=== PATIENT | female | born 1955 | race Caucasian/White ===

== ENCOUNTER → 2023-10-16 09:57 | Outpatient (REF) | payer MEDICARE, OTHER, SELFPAY ==
[2023-10-18 15:19] LABS: Quantiferon Mitogen minus NIL 5.05 IU/mL; Quantiferon NIL 0.02 IU/mL; Quantiferon TB Gold Plus Negative (Negative)
== END ==
LOC: REG 09:57
PROVIDERS: ATTENDING PHYSICIAN Internal Medicine Rheumatology; FAMILY PHYSICIAN Family Medicine
DX: E03.9 Hypothyroidism, unspecified (principal); L40.59 Other psoriatic arthropathy; M17.12 Unilateral primary osteoarthritis, left knee; Z68.33 Body mass index [BMI] 33.0-33.9, adult; Z79.899 Other long term (current) drug therapy
CPT/HCPCS: 36415; 86480

== ENCOUNTER → 2023-11-15 13:02 | Outpatient (REF) | payer MEDICARE, OTHER, SELFPAY | LOC: PAVMRI 13:02 | PROVIDERS: ATTENDING PHYSICIAN Internal Medicine Gastroenterology; FAMILY PHYSICIAN Family Medicine | DX: D13.6 Benign neoplasm of pancreas (principal) | CPT/HCPCS: 74183; A9575 ==

== ENCOUNTER → 2023-11-19 15:19 | Outpatient (REF) | payer MEDICARE, OTHER, SELFPAY | LOC: PAVMRI 15:19 | PROVIDERS: ATTENDING PHYSICIAN Physician Assistant Surgical; FAMILY PHYSICIAN Family Medicine | DX: S46.012A Strain of muscle(s) and tendon(s) of the rotator cuff of left shoulder, initial encounter (principal); M25.512 Pain in left shoulder | CPT/HCPCS: 73221 ==

== ENCOUNTER → 2023-12-22 07:57 | Outpatient (REF) | payer MEDICARE, OTHER, SELFPAY ==
[2023-12-22 08:58] LABS: % Basophils 0.7 % (0-2); % Eosinophils 3.1 % (0-6); % Immature Granulocytes 0.3 % (0-0.5); % Lymphocytes 27.7 % (20.5-51.1); % Monocytes 7.8 % (1.7-9.3); % Neutrophils 60.4 % (42.2-75.2); Absolute Basophils 0.1 10^3/uL (0-0.2); Absolute Eosinophils 0.2 10^3/uL (0-0.7); Absolute Lymphocytes 1.9 10^3/uL (1.2-3.4); Absolute Monocytes 0.5 10^3/uL (0.1-0.6); Absolute Neutrophils 4.1 10^3/uL (1.4-6.5); Hematocrit 39.6 % (37.0-47.0); Hemoglobin 12.8 g/dL (12.0-16.0); Mean Corp Hgb Conc. 32.3 g/dL (33.0-37.0); Mean Corpuscular Hgb 28.3 pg (27.0-31.0); Mean Corpuscular Volume 87.6 fL (81.0-99.0); Mean Platelet Volume 8.4 fL (7.4-10.4); Nucleated Red Blood Cells % 0 %; Platelet Count 336 10^3/uL (130-400); Red Blood Cell Count 4.52 10^6/uL (4.20-5.40); Red Cell Dist. Width 14.2 % (11.5-14.5); White Blood Cell Count 6.8 10^3/uL (4.8-10.8)
[2023-12-22 09:34] LABS: ALT (SGPT) 21 U/L (0-35); AST (SGOT) 28 U/L (14-36); Albumin 4.4 g/dl (3.5-5.0); Alkaline Phosphatase 91 U/L (38-126); Blood Urea Nitrogen 29 mg/dl (7-17); Calcium 9.3 mg/dl (8.4-10.2); Carbon Dioxide 28 mmol/L (22-30); Chloride 102 mmol/L (98-107); Glucose 85 mg/dl (70-99); Lipase 266 U/L (23-300); Potassium 3.5 mmol/L (3.5-5.1); Sodium 136 mmol/L (135-145); Total Bilirubin 0.5 mg/dl (0.2-1.3); Total Protein 7.3 g/dl (6.3-8.2); eGFR > 60.00
== END ==
LOC: REG 07:57
PROVIDERS: ATTENDING PHYSICIAN Internal Medicine Rheumatology; FAMILY PHYSICIAN Nurse Practitioner Adult Health; OTHER PHYSICIAN Internal Medicine Cardiovascular Disease; REFERRING PHYSICIAN Internal Medicine Gastroenterology
DX: E03.9 Hypothyroidism, unspecified (principal); L40.59 Other psoriatic arthropathy; M17.12 Unilateral primary osteoarthritis, left knee; Z11.1 Encounter for screening for respiratory tuberculosis; Z68.33 Body mass index [BMI] 33.0-33.9, adult; Z79.899 Other long term (current) drug therapy; R10.84 Generalized abdominal pain; K63.1 Perforation of intestine (nontraumatic); K26.5 Chronic or unspecified duodenal ulcer with perforation; R11.14 Bilious vomiting; K86.1 Other chronic pancreatitis
CPT/HCPCS: 36415; 80053; 83690; 85025; 86140

== ENCOUNTER → 2024-02-08 13:22 | Outpatient (REF) | payer MEDICARE, OTHER, SELFPAY | LOC: WDC 13:22 | PROVIDERS: ATTENDING PHYSICIAN Nurse Practitioner Adult Health | DX: N64.4 Mastodynia (principal); Z12.31 Encounter for screening mammogram for malignant neoplasm of breast | CPT/HCPCS: 76642; 77062; 77066 ==

== ENCOUNTER → 2024-04-01 09:48 | Outpatient (REF) | payer MEDICARE, OTHER, SELFPAY ==
[2024-04-01 11:19] LABS: % Basophils 0.8 % (0-2); % Eosinophils 3.3 % (0-6); % Immature Granulocytes 0.3 % (0-0.5); % Lymphocytes 23.4 % (20.5-51.1); % Monocytes 8.2 % (1.7-9.3); Absolute Basophils 0.1 10^3/uL (0-0.2); Absolute Eosinophils 0.2 10^3/uL (0-0.7); Absolute Lymphocytes 1.7 10^3/uL (1.2-3.4); Absolute Monocytes 0.6 10^3/uL (0.1-0.6); Absolute Neutrophils 4.6 10^3/uL (1.4-6.5); Hematocrit 38.8 % (37.0-47.0); Hemoglobin 12.8 g/dL (12.0-16.0); Mean Corpuscular Hgb 28.6 pg (27.0-31.0); Mean Corpuscular Volume 86.8 fL (81.0-99.0); Nucleated Red Blood Cells % 0 %; Platelet Count 321 10^3/uL (130-400); Red Blood Cell Count 4.47 10^6/uL (4.20-5.40); White Blood Cell Count 7.2 10^3/uL (4.8-10.8)
[2024-04-01 11:59] LABS: ALT (SGPT) 17 U/L (0-35); AST (SGOT) 28 U/L (14-36); Albumin 4.5 g/dl (3.5-5.0); Alkaline Phosphatase 104 U/L (38-126); Blood Urea Nitrogen 30 mg/dl (7-17); Calcium 9.4 mg/dl (8.4-10.2); Carbon Dioxide 29 mmol/L (22-30); Chloride 99 mmol/L (98-107); Glucose 80 mg/dl (70-99); HDL Cholesterol 88 mg/dl; LDL Cholesterol, Calculated 125 mg/dl; Potassium 4.1 mmol/L (3.5-5.1); Sodium 138 mmol/L (135-145); Total Bilirubin 0.5 mg/dl (0.2-1.3); Total Cholesterol 233 mg/dl (50-199); Total Protein 7.2 g/dl (6.3-8.2); Triglyceride 101 mg/dl (10-149); Very Low Density Lipoprotein 20 mg/dl (0-30); eGFR > 60.00
[2024-04-01 12:17] LABS: Free T4 1.74 ng/dl (0.78-2.19)
[2024-04-01 12:31] LABS: TSH 2.72 uIU/ml (0.47-4.68)
== END ==
LOC: REG 09:48
PROVIDERS: ATTENDING PHYSICIAN Internal Medicine Cardiovascular Disease; FAMILY PHYSICIAN Internal Medicine Endocrinology, Diabetes & Metabolism; OTHER PHYSICIAN Family Medicine; REFERRING PHYSICIAN Internal Medicine Rheumatology
DX: E78.2 Mixed hyperlipidemia (principal); R06.02 Shortness of breath; R60.0 Localized edema; I45.0 Right fascicular block; R53.83 Other fatigue; E66.3 Overweight; E11.9 Type 2 diabetes mellitus without complications; I10 Essential (primary) hypertension; L40.50 Arthropathic psoriasis, unspecified; R07.9 Chest pain, unspecified; E89.0 Postprocedural hypothyroidism; E03.9 Hypothyroidism, unspecified; L40.59 Other psoriatic arthropathy; M17.12 Unilateral primary osteoarthritis, left knee; Z11.1 Encounter for screening for respiratory tuberculosis; Z68.33 Body mass index [BMI] 33.0-33.9, adult; Z79.899 Other long term (current) drug therapy
CPT/HCPCS: 36415; 80053; 80061; 83036; 84439; 84443; 85025; 86140

== ENCOUNTER → 2024-04-21 06:57 | Outpatient (REF) | payer MEDICARE, OTHER, SELFPAY ==
[2024-04-21 08:05] LABS: % Basophils 0.7 % (0-2); % Eosinophils 1.7 % (0-6); % Immature Granulocytes 0.1 % (0-0.5); % Lymphocytes 27.5 % (20.5-51.1); % Monocytes 7.6 % (1.7-9.3); % Neutrophils 62.4 % (42.2-75.2); Absolute Basophils 0.1 10^3/uL (0-0.2); Absolute Eosinophils 0.1 10^3/uL (0-0.7); Absolute Lymphocytes 2.1 10^3/uL (1.2-3.4); Absolute Monocytes 0.6 10^3/uL (0.1-0.6); Absolute Neutrophils 4.7 10^3/uL (1.4-6.5); Hematocrit 36.5 % (37.0-47.0); Hemoglobin 12.2 g/dL (12.0-16.0); Mean Corp Hgb Conc. 33.4 g/dL (33.0-37.0); Mean Corpuscular Hgb 27.9 pg (27.0-31.0); Mean Corpuscular Volume 83.3 fL (81.0-99.0); Mean Platelet Volume 8.6 fL (7.4-10.4); Nucleated Red Blood Cells % 0 %; Platelet Count 372 10^3/uL (130-400); Red Blood Cell Count 4.38 10^6/uL (4.20-5.40); Red Cell Dist. Width 13.7 % (11.5-14.5); White Blood Cell Count 7.6 10^3/uL (4.8-10.8)
[2024-04-21 08:28] LABS: Blood Urea Nitrogen 32 mg/dl (7-17); Calcium 9.7 mg/dl (8.4-10.2); Carbon Dioxide 28 mmol/L (22-30); Chloride 98 mmol/L (98-107); Glucose 85 mg/dl (70-99); Sodium 136 mmol/L (135-145); eGFR 54.73
== END ==
LOC: REG 06:57
PROVIDERS: ATTENDING PHYSICIAN Specialist; FAMILY PHYSICIAN Family Medicine; REFERRING PHYSICIAN Internal Medicine Cardiovascular Disease
DX: Z01.818 Encounter for other preprocedural examination (principal)
CPT/HCPCS: 36415; 80048; 85025; 93005

== ENCOUNTER → 2024-04-30 18:29 | Outpatient (REF) | payer MEDICARE, OTHER, SELFPAY | LOC: PAVMRI 18:29 | PROVIDERS: ATTENDING PHYSICIAN Physician Assistant Surgical; FAMILY PHYSICIAN Family Medicine | DX: M75.41 Impingement syndrome of right shoulder (principal); M25.511 Pain in right shoulder | CPT/HCPCS: 73221 ==

== ENCOUNTER 2024-05-02 06:22 | Day surgery (SDC) | payer MEDICARE, OTHER, SELFPAY ==
[2024-05-02] VITALS (9 sets, daily range): BP systolic 137–164; BP diastolic 60–76; BMI 32.2
[2024-05-02 08:25] LABS: Glucose - Point of Care 94 mg/dl (70-99)
[2024-05-02] MEDS: TYLENOL 1000 MG PO (08:30)
[2024-05-02] MEDS: NORMOSOL-R 1000 IV (08:47)
[2024-05-02 11:04] LABS: Glucose - Point of Care 119 mg/dl (70-99)
== END 2024-05-02 13:00 | disposition home or self-care (01) ==
LOC: SDS 06:22
PROVIDERS: ATTENDING PHYSICIAN Specialist
DX: M75.122 Complete rotator cuff tear or rupture of left shoulder, not specified as traumatic (principal); M75.42 Impingement syndrome of left shoulder
CPT/HCPCS: 29827; 29826; 29823; 82962; C1713

== ENCOUNTER → 2024-05-27 07:32 | Outpatient (REF) | payer MEDICARE, OTHER, SELFPAY ==
[2024-05-27 09:18] LABS: % Basophils 0.7 % (0-2); % Eosinophils 1.3 % (0-6); % Immature Granulocytes 0.5 % (0-0.5); % Lymphocytes 21.3 % (20.5-51.1); % Monocytes 7.9 % (1.7-9.3); % Neutrophils 68.3 % (42.2-75.2); Absolute Basophils 0.1 10^3/uL (0-0.2); Absolute Eosinophils 0.1 10^3/uL (0-0.7); Absolute Lymphocytes 1.8 10^3/uL (1.2-3.4); Absolute Monocytes 0.7 10^3/uL (0.1-0.6); Absolute Neutrophils 5.6 10^3/uL (1.4-6.5); Hematocrit 34.8 % (37.0-47.0); Hemoglobin 11.3 g/dL (12.0-16.0); Mean Corp Hgb Conc. 32.5 g/dL (33.0-37.0); Mean Corpuscular Hgb 27.2 pg (27.0-31.0); Mean Corpuscular Volume 83.7 fL (81.0-99.0); Mean Platelet Volume 9.1 fL (7.4-10.4); Nucleated Red Blood Cells % 0 %; Platelet Count 500 10^3/uL (130-400); Red Blood Cell Count 4.16 10^6/uL (4.20-5.40); Red Cell Dist. Width 13.7 % (11.5-14.5); White Blood Cell Count 8.2 10^3/uL (4.8-10.8)
[2024-05-27 09:57] LABS: ALT (SGPT) 16 U/L (0-35); AST (SGOT) 26 U/L (14-36); Albumin 4.3 g/dl (3.5-5.0); Alkaline Phosphatase 76 U/L (38-126); Blood Urea Nitrogen 28 mg/dl (7-17); Calcium 9.9 mg/dl (8.4-10.2); Carbon Dioxide 32 mmol/L (22-30); Chloride 94 mmol/L (98-107); Glucose 93 mg/dl (70-99); Potassium 4.3 mmol/L (3.5-5.1); Sodium 140 mmol/L (135-145); Total Bilirubin 0.5 mg/dl (0.2-1.3); Total Protein 6.9 g/dl (6.3-8.2); eGFR > 60.00
[2024-05-27 10:31] LABS: TSH 1.42 uIU/ml (0.47-4.68)
== END ==
LOC: REG 07:32
PROVIDERS: ATTENDING PHYSICIAN Family Medicine; OTHER PHYSICIAN Internal Medicine Endocrinology, Diabetes & Metabolism; OTHER PHYSICIAN Internal Medicine Gastroenterology; REFERRING PHYSICIAN Internal Medicine Rheumatology
DX: R53.83 Other fatigue (principal); M79.604 Pain in right leg; M79.605 Pain in left leg
CPT/HCPCS: 36415; 80053; 84443; 85025; 86140

== ENCOUNTER 2024-05-30 12:57 | Inpatient (IN) | payer MEDICARE, OTHER, SELFPAY ==
[2024-05-30] VITALS (8 sets, daily range): BP systolic 148–169; BP diastolic 67–91; BMI 31.0
--- NOTE | 2024-05-30 09:08 | ED.GENMED ---
History of Present Illness
General
Chief Complaint: Generalized Pain
Source: patient and spouse
Exam Limitations: none
Time Seen by Provider: 05/30/24 09:05
Nursing documentation reviewed up to this point in time: agreed with
History of Present Illness
History of Present Illness:
Patient is a 68-year-old female with past medical history of psoriatic arthritis spinal stenosis reflux with history of duodenal perforation hypothyroidism chronic pancreatitis anxiety recent(05/02/24) left shoulder arthroscopy with repair of
rotator cuff tear and debridement presents to the ER for evaluation of pain. Patient reports has a history of psoriatic arthritis and believes she is going through a flare of her psoriatic arthritis because of her recent left shoulder surgery.
She reports ever since the surgery she has been having awful joint pain. She cannot take narcotics and was taking Tylenol at home but she reports she is to a point where she can barely walk and get out of bed. She reports she recently had blood
work done last week and her CRP was very elevated. She denies any fever she has no appetite she is trying to drink fluids. She denies any rash.
For her psoriatic arthritis she takes Otezla 30 mg twice daily and is followed by Dr. Cooper.
Past History
Past History
ED Past Medical History: Asthma, GERD, HTN, NIDDM, Seizures, Hypothyroidism, Psychiatric (Anxiety, Panic disorder) and Other (MS, recurrent pancreatitis, IPMN. Migraines, Demyelinating disease, Glaucoma, Ulcers)
ED Past Surgical History: Gynecological, Orthopedic (Cervical fusion, right total knee, ) and Other (Gastric sleeve, thyroidectomy)
Social History
Tobacco: Non-smoker
Alcohol: None
Drug: None
Personal:
Living: with family
Review of Systems
Review of Systems
All Other Systems: ROS reviewed and negative except as documented in HPI and ROS
Constitutional: Reports fatigue; Denies fever or chills
EENT: Reports no symptoms
Respiratory: Reports no symptoms
Cardiac: Reports no symptoms
ABD/GI: Reports no symptoms
: Reports no symptoms
Musculoskeletal: Reports joint pain
Skin: Reports no symptoms; Denies rash
Neurological: Reports no symptoms
Hematologic/Lymphatic: Reports no symptoms
Psychiatric: Reports no symptoms
Phy Exam
General Physical Exam
General Presentation: no apparent distress
General age: appears stated age
General Skin: warm and dry
General Habitus: normal
General Mental: alert
General Hydration: dry mucous membranes
Cardiovascular Exam
Cardiovascular Exam: regular rate/rhythm, no murmur and normal peripheral pulses
Pulmonary Exam
Pulmonary Exam: lungs clear and no respiratory distress
Neurological Exam
Neurological Exam: alert and oriented x3
Musculoskeletal Exam
Musculoskeletal Exam: full ROM and other (Patient with difficulty moving arms bilaterally slow to move legs because of pain no joint swelling erythema or rash noted)
Skin Exam
Skin Exam: normal color, warm/dry and no rash
Psychiatric Exam
Psychiatric Exam: normal mood/affect
Course
Orders/Labs/Results
Orders:
Orders
05/30/24 09:24
IV Insert/Care/Rem.- Treatment PRN
0.9% Sodium Chloride 1000 ml [Nss] 1,000 ml IV BOLUS
05/30/24 09:25
Acetaminophen 1000MG/100Ml [Ofirmev] 1,000 mg in 100 ml IV ONCE
Acetaminophen IV Indication:: ED Narcotic Naive Pt-ONCE
Ondansetron Injectable [Zofran] 4 mg IV NOW STA
05/30/24 10:13
CRP [C-Reactive Protein] Urgent
Complete Blood Count/With Diff Urgent
Comprehensive Metabolic Panel Urgent
Sed Rate [Erythrocyte Sed Rate] Urgent
05/30/24 10:23
Dexamethasone Sod Phosphate [Decadron] 10 mg IV NOW STA
05/30/24 11:28
Urinalysis Reflex To Culture Urgent
Date Specimen was Collected: 05/30/24
Time Specimen was Collected: 11:27
05/30/24 11:57
Morphine Sulfate 2 mg IV NOW STA
Ondansetron Injectable [Zofran] 4 mg IV NOW STA
05/30/24 12:01
COVID-19 Antigen Urgent
Source: Nasal Swab
Influenza A+B Rapid Molecular Urgent
TOÑA Source: Nasal Swab
Specimen Description:
05/30/24 12:02
Metoclopramide [Reglan] 10 mg .ROUTE .STK-MED ONE
Abnormal Lab Results
05/30/24
10:13
WBC 12.4 H 10^3/uL
(4.8-10.8)
RBC 3.89 L 10^6/uL
(4.20-5.40)
Hgb 10.6 L g/dL
(12.0-16.0)
Hct 32.1 L %
(37.0-47.0)
Plt Count 457 H 10^3/uL
(130-400)
Abs Immat Gran (auto) 0.1 H 10^3/uL
(0-0.05)
Absolute Neuts (auto) 10.2 H 10^3/uL
(1.4-6.5)
Absolute Lymphs (auto) 1.0 L 10^3/uL
(1.2-3.4)
Absolute Monos (auto) 1.0 H 10^3/uL
(0.1-0.6)
Neutrophils % 82.2 H %
(42.2-75.2)
Lymphocytes % 8.0 L %
(20.5-51.1)
ESR 57 H mm/hour
(0-20)
Chloride 97 L mmol/L
(98-107)
Carbon Dioxide 31 H mmol/L
(22-30)
BUN 30 H mg/dl
(7-17)
Glucose 117 H mg/dl
(70-99)
C-Reactive Protein 83.90 H mg/L
(0.0-10.00)
05/30/24 10:13
05/30/24 10:13
Vital Signs
Initial and Last Documented VS:
Initial Vital Signs
Temp Pulse Resp BP Pulse Ox
98.7 F 105 20 169/83 98
05/30/24 08:43 05/30/24 08:43 05/30/24 08:43 05/30/24 08:43 05/30/24 08:43
Last Documented Vital Signs
Temp Pulse Resp BP Pulse Ox
98.7 F 83 24 156/70 98
05/30/24 08:43 05/30/24 11:00 05/30/24 11:00 05/30/24 11:00 05/30/24 11:00
Crisis Intervention Counselor consulted with Physician
Crisis Intervention Counselor consulted with physician?: Yes
Name of Physician Consulted: Martina
MDM/Problems Addressed
Differential Diagnosis Includes:
Not limited to flare of psoriatic arthritis, viral syndrome less likely COVID flu
MDM/Problems Addressed:
Patient is a 68-year-old female with history of psoriatic arthritis who has had what she believes is a flare of her psoriatic arthritis since having rotator cuff surgery to left shoulder in April by Dr. Verdin. She complains of increasing joint pain
and now can barely get out of bed stand by herself removed. She denies any fevers. She presents uncomfortable however no obvious joint swelling or redness no rash. She is afebrile. White count minimally elevated 12.4 hemoglobin 10.6; she is
dehydrated on appearance with a BUN of 30 creatinine normal 0.8. Her C-reactive protein is elevated. No obvious UTI will check COVID flu however patient will require admission for arthralgia ambulatory dysfunction and pain with dehydration.
Patient was given 1 dose of steroids for inflammation along with Ofirmev initially but still has pain we will try very small dose of morphine as she does have history of nausea vomiting with that she was given nausea medicine.. She was hydrated
here in the ER
Chronic conditions affecting care:
Psoriatic arthritis recent shoulder surgery in April
*Pulse Oximetry
Patient hypoxic: no
*Critical Care Note
Total Time (30-74mins, 75-104mins- exclusive of procedures): Not Applicable
ED Attending Note
-
Portions of this chart may have been created with voice recognition software.� Occasional wrong word or��sound alike� substitutions may have occurred due to the inherent limitations of voice recognition software.
Discharge Plan
Departure
Patient Disposition: Admit
Date of Disposition: 05/30/24
Time of Disposition: 12:05
Admit to: Med/Surg
Admit to doctor: hospitalist
Presentation/result/management discussed w/ accepting MD/DO: Hospitalist
Patient with high blood pressure during this ER visit?: Yes
Condition: Fair
Covid-19: Not Applicable
Discharge Problem:
Arthralgia, Acute dehydration
Prescriptions:
No Action
travoprost 1 DROP drops
1 drp BOTH EYES HS
levothyroxine 100 MCG tablet
137 mcg PO DAILY
methotrexate sodium 2.5 MG tablet
2.5 mg PO TUTH
albuterol sulfate 1 PUFF HFA aerosol inhaler
2 puff inhalation R Q4HPRN PRN (Reason: sob)
Patient Comments:
as needed
melatonin 10 MG tablet
20 mg PO HS
amlodipine 5 MG tablet
2.5 mg PO HS
folic acid 1 MG tablet
1 mg PO DAILY
ondansetron 4 mg tablet,disintegrating
4 mg PO Q8HPRN PRN (Reason: nausea and vomiting) Qty: 10 0RF
furosemide 20 MG tablet
20 mg PO HS Qty: 0 0RF
metformin 500 mg Tablet
500 mg PO TID
meclizine 12.5 mg Tablet
12.5 mg PO TID PRN (Reason: vertigo)
Otezla 30 mg Tablet
30 mg PO BID
esomeprazole magnesium [Nexium] 40 mg capsule,delayed release(DR/EC)
40 mg PO DAILY
acetaminophen [Tylenol Arthritis] 650 mg Tablet Extended Release
1,300 mg PO Q8H
lorazepam 0.5 mg Tablet
0.5 mg PO BID PRN (Reason: anxiety)
loratadine [Claritin] 10 mg Tablet
10 mg PO PRN PRN (Reason: allergies)
cholecalciferol (vitamin D3) [Vitamin D3] 25 mcg (1,000 unit) Capsule
25 mcg PO DAILY
Centrum Silver Tablet
1 tab PO DAILY
calcium-vitamin D3-vitamin K [Viactiv] 650 mg-12.5 mcg-40 mcg Tablet,Chewable
2 tab PO DAILY
PreserVision AREDS
1 cap PO DAILY
vitamin R97-[id number] acid
1,000 mcg PO DAILY
Referrals:
Kar Cohen Jr., DO [Family Provider] -
Interventions
Interventions:
*Risk Screen - Suicide Last Done: 05/30/24 08:43
*General Assessment Last Done: 05/30/24 08:43
*Neglect/Abuse Screening Last Done: 05/30/24 08:43
ED- Fall Risk Assessment Last Done: 05/30/24 11:05
Discharge Date and Time
Print Language: TRINIDADIAN
[2024-05-30] MEDS: OFIRMEV 100 IV (10:22)
[2024-05-30] MEDS: ZOFRAN 4 MG IV (10:23)
[2024-05-30] MEDS: NSS 1000 IV ×2 (10:26→16:42)
[2024-05-30 10:30] LABS: % Basophils 0.4 % (0-2); % Eosinophils 0.5 % (0-6); % Immature Granulocytes 0.5 % (0-0.5); % Monocytes 8.4 % (1.7-9.3); % Neutrophils 82.2 % (42.2-75.2); Absolute Basophils 0.1 10^3/uL (0-0.2); Absolute Eosinophils 0.1 10^3/uL (0-0.7); Absolute Immature Granulocytes 0.1 10^3/uL (0-0.05); Absolute Neutrophils 10.2 10^3/uL (1.4-6.5); Hematocrit 32.1 % (37.0-47.0); Hemoglobin 10.6 g/dL (12.0-16.0); Mean Corpuscular Hgb 27.2 pg (27.0-31.0); Mean Corpuscular Volume 82.5 fL (81.0-99.0); Mean Platelet Volume 8.5 fL (7.4-10.4); Nucleated Red Blood Cells % 0 %; Platelet Count 457 10^3/uL (130-400); Red Blood Cell Count 3.89 10^6/uL (4.20-5.40); Red Cell Dist. Width 13.8 % (11.5-14.5); White Blood Cell Count 12.4 10^3/uL (4.8-10.8)
[2024-05-30 10:39] LABS: ALT (SGPT) 14 U/L (0-35); AST (SGOT) 21 U/L (14-36); Albumin 4.1 g/dl (3.5-5.0); Alkaline Phosphatase 82 U/L (38-126); Blood Urea Nitrogen 30 mg/dl (7-17); Carbon Dioxide 31 mmol/L (22-30); Chloride 97 mmol/L (98-107); Glucose 117 mg/dl (70-99); Potassium 3.9 mmol/L (3.5-5.1); Sodium 139 mmol/L (135-145); Total Bilirubin 0.4 mg/dl (0.2-1.3); Total Protein 6.8 g/dl (6.3-8.2); eGFR > 60.00
[2024-05-30] MEDS: DECADRON 10 MG IV (10:55)
--- NOTE | 2024-05-30 11:13 | EDRN ---
Pt was able to get up OOB w/ asist of 1 then ambulated to BR w/out assist in a slow shuffling step. Pt stated to me that she cannot sit down has has been voiding standing and is having her spouse assist her.
[2024-05-30 11:14] LABS: Erythrocyte Sed Rate 57 mm/hour (0-20)
[2024-05-30 11:42] LABS: Urine Albumin Trace (Neg - Trace); Urine Bilirubin Negative (Negative); Urine Character Clear (Clear); Urine Color Yellow; Urine Glucose Negative (Negative); Urine Ketone Negative (Negative); Urine Leukocyte Negative (Negative); Urine Nitrite Negative (Negative); Urine Occult Blood Negative (Negative); Urine Specific Gravity 1.015 (<1.030); Urine Urobilinogen Negative (Neg - 1+)
--- NOTE | 2024-05-30 11:52 | EDRN ---
[facility] in room w/ pt at this time.
[2024-05-30] MEDS: MORPHINE SULFATE 2 MG IV (12:10)
--- NOTE | 2024-05-30 12:11 | HPS.HSE ---
Family Physician
-
Family Physician: Kar Cohen Jr.
Chief Complaint
-
awful diffuse joint pain since having arthroscopy surg on her left shoulder in Apr 2024
History of Present Illness
66 F with PMH significant for psoriatic arthritis spinal stenosis, GERD,HX duodenal perforation hypothyroidism chronic pancreatitis, anxiety, recent(05/02/24) left shoulder arthroscopy with repair of rotator cuff tear and debridement presents to
the ER for evaluation of pain.
- she believes she is going through a flare of her psoriatic arthritis
- Ever since the surgery she has been having awful joint pain especially at large joints ( shoulder, elbows, wrists, Knees, ankles and feet)
- cannot take narcotics and was taking Tylenol at home but she reports she is to a point where she can barely walk
- recently her CRP was very elevated.
- For her psoriatic arthritis she takes Otezla 30 mg twice daily and is followed by Dr. Cooper.
Medical History
Past Medical History
Past Medical History: Reports Other
Additional Past Medical History:
Recurrent Pancreatitis / Abnormal Lipase
IPMN / Pancreatic Cysts
PUD / Bleeding Gastric Ulcer
Obesity
Psoriatic Arthritis
Hypothyroidism
Multinodular Goiter
Depression
Past Surgical History: Reports Other
Additional Past Surgical History:
Thyroidectomy
Bunionectomy
Breast Reduction
Salivary Gland Excision
Gastric Sleeve
Social History
Tobacco: Non-smoker
Alcohol: None
Drug: None
Family History
Family History: Other (Maternal Aunt - Pancreatic Cancer Paternal Aunt - Pancreatic Cancer)
Allergies / Home Medications
Allergies reflects when Allergies were last updated in [facility] [employer].
Home Medications with original date entered in [facility] [employer]
Allergy/Medication List:
Allergies
Allergy/AdvReac Type Severity Reaction Status Date / Time
bacitracin zinc Allergy Rash, Verified 06/20/22 20:16
[From Neosporin] itching
benzalkonium chloride Allergy Rash, Verified 06/20/22 20:16
[From Neosporin] itching
etanercept [From Enbrel] Allergy Demyelinating Verified 06/20/22 20:16
disease
abi nascimento Allergy Seizure Verified 06/20/22 20:16
gramicidin D [From Neosporin] Allergy Rash, Verified 06/20/22 20:16
itching
neomycin [Neomycin] Allergy Rash, Verified 06/20/22 20:16
itching
NSAIDS (Non-Steroidal Allergy pancreatiti Verified 06/20/22 20:16
Anti-Inflamma s
polymyxin B [From Neosporin] Allergy Rash, Verified 06/20/22 20:16
itching
pregabalin [From Lyrica] Allergy Nausea / Verified 06/20/22 20:16
Vomiting
Sulfa (Sulfonamide Allergy rash, Verified 06/20/22 20:16
Antibiotics) itching,
[Sulfa(Sulfonamide swelling &
Antibiotics)] nausea
Narcotics Allergy Vertigo, Uncoded 06/20/22 20:16
vomiting
steroids Allergy Unknown Uncoded 06/20/22 20:16
Home Medications
albuterol sulfate 90 mcg/actuation aerosol inhaler 2 puff inhalation R Q4HPRN PRN sob 12/15/20
furosemide 20 mg tablet 20 mg PO HS Fluid retention/Swelling 12/15/20
levothyroxine 100 mcg tablet 137 mcg PO DAILY Thyroid 12/15/20
melatonin 10 mg tablet 10 mg PO HS Sleep 12/15/20
methotrexate sodium 2.5 mg tablet 2.5 mg PO WETH CHEMO 12/15/20
multivitamin with folic acid 400 mcg tablet (Tab-A-Kelly) 1 tab PO DAILY Supplement 12/15/20
travoprost 0.004 % eye drops 1 drp BOTH EYES HS Eye condition 12/15/20
amlodipine 5 mg tablet 2.5 mg PO HS Blood pressure 04/28/21
Carbohydrate Kassi 500 mg PO DAILY Supplement 09/28/21
calcium-vitamin D3-vitamin K 500 mg-500 unit-40 mcg chewable tablet 3 ea PO DAILY Supplement 09/28/21
cholecalciferol (vitamin D3) 10 mcg (400 unit) tablet (Vitamin D3) 2,000 units PO DAILY Supplement 09/28/21
folic acid 1 mg tablet 1 mg PO SUMOTUFRSA Supplement 09/28/21
jfdyvxur-pvaordyv-tai C 250 mg-herbal no.124 8.875 mg chewable tablet (Airborne (ascorbic acid)) 1 ea PO DAILY Supplement 09/28/21
acetaminophen 325 mg tablet 650 mg PO Q4HWA 10/25/21
aspirin 325 mg tablet 325 mg PO DAILY 10/25/21
tofacitinib 5 mg tablet (Xeljanz) 5 mg PO BID Antirheumatic, Disease Modifying; ##0 10/25/21
vitamins A,C,N-mgkg-eavhag 14,320 unit-226 mg-200 unit capsule (Vision Formula (P-J-O-zinc-copper)) 1 ea PO HS Supplement ##0 10/25/21
ondansetron 4 mg disintegrating tablet 4 mg PO Q8HPRN PRN nausea and vomiting #10 tabs 05/17/22
metformin 500 mg tablet 500 mg PO BID 06/20/22
Review of Systems
-
Constitutional: Reports No Symptoms
EENT: Reports No Symptoms
Respiratory: Reports No Symptoms
Cardiac: Reports No Symptoms
Abdomen/GI: Reports No Symptoms
: Reports No Symptoms
Skin: Reports No Symptoms
Neurological: Reports No Symptoms
Endocrine: Reports No Symptoms
Hematologic/Lymphatic: Reports No Symptoms
Psych: Reports No Symptoms
Physical Exam
Vital Signs
Vital Signs
Temp Pulse Resp BP Pulse Ox
98.7 F 83 24 156/70 98
05/30/24 08:43 05/30/24 11:00 05/30/24 11:00 05/30/24 11:00 05/30/24 11:00
Physical Exam
General: Well Developed, Well Nourished and No Apparent Distress
HEENT: NormoCephalic, Moist mucous membranes and Atraumatic
Respiratory: Clear
Cardiac: S1/S2 and Regular Rhythm; No Murmur or Rub
GI: Soft, Non Tender, Non Distended and Normal Bowel Sounds; No Organomegaly
Rectal: Deferred by Provider
Musculoskeletal: No Clubbing, No Cyanosis and No Edema
Skin: No Rash
Neuro: Nonfocal/grossly intact
Laboratory Results
-
05/30/24 10:13
05/30/24 10:13
Laboratory Results
Total Bilirubin 0.4 mg/dl (0.2-1.3) 05/30/24 10:13
AST 21 U/L (14-36) 05/30/24 10:13
ALT 14 U/L (0-35) 05/30/24 10:13
Alkaline Phosphatase 82 U/L (38-126) 05/30/24 10:13
Data Reviewed
-
Lab Data: Labs Reviewed by me
Old Records: Reviewed
Impression/Plan
-
Vital Signs
Temp Pulse Resp BP Pulse Ox
98.7 F 83 24 156/70 98
05/30/24 08:43 05/30/24 11:00 05/30/24 11:00 05/30/24 11:00 05/30/24 11:00
Data
Laboratory Tests
05/27/24 05/30/24 05/30/24
07:56 10:13 11:28
WBC 12.4 H
Hgb 11.3 L 10.6 L
Plt Count 500 H 457 H
Chloride 97 L
Carbon Dioxide 32 H 31 H
BUN 30 H
Creatinine 0.8
eGFR > 60.00
C-Reactive Protein 83.90 H
Urine Clarity Clear
Urine Nitrite (Reflex) Negative
Leukocyte Esterase Rfl Negative
SARS-CoV-2 Antigen
Last hospitalist admission:
DATE OF ADMISSION: 12/20/2022 - DATE OF DISCHARGE: 12/28/2022
DC Dxs:
1. Duodenal perforation.
2. Recent EUS for pancreatic cyst with normal duodenal bulb, cystic lesion, pancreatic body, tail and head with no signs of
pathology in the gallbladder. At that time, perforation was found the duodenum and a clip placed.
ASSESSMENT & PLAN
Acute flare polyarticular Psoriatic inflammatory Arthritis: elevated CRP
- current joint pains at large joints ( shoulder, elbows, wrists, Knees, ankles and fe
- No active rash.
- associated with acute gait dysfunction
- agree with IV Decadron & add ISS moderate
- continue current regimen of Otezla BID
- on [employer] methotrexate
- Rheum consulted
Hypothyroidism
- Stable.
- Continue T4 replacement.
Obesity due to excess calories
- Affects all aspects of care.
- s/p prior gastric sleeve procedure.
- Encourage healthy diet / increased exercise with goal of weight reduction.
- cont. Metformin was told for obesity not diabetic
HX Duodenal perforation.
- s/p xploratory laparotomy, oversew of duodenotomy from iatrogenic perforation at endoscopic ultrasound, washout of duodenal pancreatic infection.
Recurrent Pancreatitis HX
- No longer metformin given AE of abdominal cramping and can confuse picture (patient taking this for weight loss, not diabetes)
Pancreatic Cysts HX
- HX EUS for pancreatic cyst with normal duodenal bulb, cystic lesion, pancreatic body, tail and head with no signs of
pathology in the gallbladder. At that time, perforation was found the duodenum and a clip placed.
- F/U needed as outpatient with Dr Daley
DVT Prophylaxis: SCDs
Code Status: Full
IP MS
[2024-05-30] MEDS: NSS 500 IV (12:14)
[2024-05-30] MEDS: REGLAN 10 MG IV (12:15)
--- NOTE | 2024-05-30 12:41 | EDRN ---
Dr. Sauceda in room w/ pt at this time.
[2024-05-30 12:42] LABS: COVID-19 Antigen Negative (Negative)
--- NOTE | 2024-05-30 14:15 | EDRN ---
No Delay Nurses Report sent to 4th floor E for M/S bed 405.1 at this time w/ call placed to floor and message left for RN.
[2024-05-30 17:00] LABS: Glucose - Point of Care 330 mg/dl (70-99)
[2024-05-30] MEDS: GLUCOPHAGE 500 MG PO (17:01)
[2024-05-30] MEDS: NOVOLOG FLEXPEN-MODERATE RESISTANCE 7 UNITS SC (17:02)
[2024-05-30] MEDS: DECADRON 4 MG IV (17:08)
[2024-05-30] MEDS: LOVENOX 40 MG SC (17:08)
[2024-05-30] MEDS: NON-FORMULARY ITEM 30 MG PO (20:40)
[2024-05-30] MEDS: ProAIR HFA INHALER 2 PUFF INH (20:58)
[2024-05-30 21:15] LABS: Glucose - Point of Care 149 mg/dl (70-99)
[2024-05-30] MEDS: AMBIEN 5 MG PO (22:07)
[2024-05-30] MEDS: MELATONIN 10 MG PO (22:07)
[2024-05-30] MEDS: NORVASC 2.5 MG PO (22:07)
[2024-05-30] MEDS: LASIX 20 MG PO (22:07)
[2024-05-30] MEDS: XALATAN OPHTHALMIC SOLUTION 1 DROP BOTH EYES (22:08)
[2024-05-30] MEDS: TYLENOL 650 MG PO (22:11)
[2024-05-31] MEDS: DECADRON 4 MG IV ×3 (01:07→17:32)
[2024-05-31] MEDS: TYLENOL 650 MG PO ×3 (03:26→15:42)
[2024-05-31] MEDS: SYNTHROID 137 MCG PO (05:22)
[2024-05-31 07:28] LABS: Glucose - Point of Care 135 mg/dl (70-99)
[2024-05-31 07:30] VITALS: BP 150/69
[2024-05-31] MEDS: NOVOLOG FLEXPEN-MODERATE RESISTANCE SC ×3 (07:30→16:45)
[2024-05-31 07:44] LABS: Hematocrit 29.1 % (37.0-47.0); Hemoglobin 9.6 g/dL (12.0-16.0); Mean Corpuscular Hgb 27.9 pg (27.0-31.0); Mean Corpuscular Volume 84.6 fL (81.0-99.0); Mean Platelet Volume 8.6 fL (7.4-10.4); Platelet Count 395 10^3/uL (130-400); Red Blood Cell Count 3.44 10^6/uL (4.20-5.40); Red Cell Dist. Width 13.7 % (11.5-14.5); White Blood Cell Count 6.9 10^3/uL (4.8-10.8)
[2024-05-31 08:04] LABS: ALT (SGPT) 13 U/L (0-35); AST (SGOT) 19 U/L (14-36); Albumin 3.1 g/dl (3.5-5.0); Alkaline Phosphatase 64 U/L (38-126); Blood Urea Nitrogen 20 mg/dl (7-17); Carbon Dioxide 24 mmol/L (22-30); Chloride 106 mmol/L (98-107); Estimated Creatinine Clearance 90 ml/min; Glucose 113 mg/dl (70-99); Potassium 3.4 mmol/L (3.5-5.1); Sodium 142 mmol/L (135-145); Total Bilirubin 0.2 mg/dl (0.2-1.3); Total Protein 5.6 g/dl (6.3-8.2); eGFR > 60.00
[2024-05-31] MEDS: VITAMIN C 500 MG PO (08:31)
[2024-05-31] MEDS: GLUCOPHAGE 500 MG PO ×3 (08:31→17:32)
[2024-05-31] MEDS: ZETIA 10 MG PO (08:31)
[2024-05-31] MEDS: FOLVITE 1 MG PO (08:32)
[2024-05-31] MEDS: NON-FORMULARY ITEM 30 MG PO ×2 (08:32→19:43)
[2024-05-31 08:55] VITALS: BP 145/72; PULSE 99; O2SAT 97
[2024-05-31 09:05] VITALS: BP 145/70; PULSE 99; O2SAT 97
[2024-05-31 09:57] LABS: Glycohemoglobin (HgbA1c) 6.2 % (4.0-5.6)
[2024-05-31] MEDS: NSS IV (10:57)
[2024-05-31 11:41] LABS: Glucose - Point of Care 130 mg/dl (70-99)
--- NOTE | 2024-05-31 13:46 | W.PN.HOSP.TC ---
Today's Communication/Plan
-
Continue IV steroids for today transition tomorrow
Assessment / Plan
Assessment / Plan
NAD, resting comfortably in bed
Scleral anicteric
Moist mucous membranes
No JVD
CTA bilateral
Normal S1-S2 no murmurs
Soft nontender nondistended bowel sounds active
No peripheral pitting edema
Moves extremities spontaneously
AAOx3
Psoriatic arthritis�acute flare
Currently steroids along with Otezla twice daily and methotrexate
Will need to follow-up with rheumatology as outpatient
Awaiting prior authorization for Tremfya
Likely able to transition to p.o. steroids with a 2-week tapering dose starting tomorrow
Pancreatic cyst
S/p EUS
Outpatient follow-up with Dr. Daley
Hypokalemia
Replete as needed
Anticipated Discharge: 24 - 48 hours
Subjective/Interval History
-
Date of Service: May 31, 2024
Seen and examined. No new complaints. No acute overnight events.
Feeling better, left shoulder pain improved, ICIng helps its. rest of joint pain improving with steroids-IV
Scared to be on steroids long-term as she does not want to gain weight
Currently on Otezla. Dr. Cooper working on getting her [place]
Objective Data
-
Labs:
Laboratory Results
05/31/24
07:21
WBC 6.9
Hgb 9.6 L
Hct 29.1 L
Plt Count 395
Sodium 142
Potassium 3.4 L
Chloride 106
Carbon Dioxide 24
BUN 20 H
Creatinine 0.6
Glucose 113 H
Calcium 8.0 L D
Total Bilirubin 0.2
AST 19
ALT 13
Alkaline Phosphatase 64
Vital Signs:
Vital Signs
Temp Pulse Resp BP Pulse Ox
98.3 F 104 18 150/69 97
05/31/24 07:30 05/31/24 07:30 05/31/24 07:30 05/31/24 07:30 05/31/24 08:20
I&O
05/30/24 05/31/24 06/01/24
06:59 06:59 06:59
Intake Total 1260 / 1260
Balance 1260 / 1260
[2024-05-31] MEDS: KCL 40 MEQ PO (14:16)
[2024-05-31 15:00] VITALS: BP 165/79
[2024-05-31] MEDS: KCL 30 MEQ IV (15:00)
--- NOTE | 2024-05-31 15:50 | PTCARENOTE ---
Received patient this am AAOx3. Pt complained of left shoulder pain at incision sites. Medicated PRN with Tylenol 650 mg PO with relief. K 3.4. Pt medicated with 40 meq potassium tablets as ordered. K rider started at 1500. Pt complained of
burning at IV site. Site looked fine. Ice pack placed over IV site. Dr. Cam Turner made aware. Rate decreased as per MD. Pt then stated ' that she wanted it turned off' Dr. Cam Turner made aware. Pt tolerated diet well. OOB ambulating in room
with a steady gait. Made patient comfortable. Cont to assess patient status.
[2024-05-31 16:42] LABS: Glucose - Point of Care 136 mg/dl (70-99)
[2024-05-31] MEDS: LOVENOX 40 MG SC (17:32)
[2024-05-31 21:09] LABS: Glucose - Point of Care 117 mg/dl (70-99)
[2024-05-31] MEDS: AMBIEN 5 MG PO (21:52)
[2024-05-31] MEDS: LASIX 20 MG PO (21:52)
[2024-05-31] MEDS: NORVASC 2.5 MG PO (21:52)
[2024-05-31] MEDS: XALATAN OPHTHALMIC SOLUTION 1 DROP BOTH EYES (21:53)
[2024-05-31] MEDS: MELATONIN 10 MG PO (21:53)
[2024-05-31 23:00] VITALS: BP 155/70
[2024-06-01] MEDS: DECADRON 4 MG IV ×2 (01:32→10:10)
[2024-06-01] MEDS: SYNTHROID 137 MCG PO (05:59)
[2024-06-01 06:00] VITALS: BMI 32.3
[2024-06-01] MEDS: TYLENOL 650 MG PO (06:00)
[2024-06-01 07:25] LABS: Glucose - Point of Care 131 mg/dl (70-99)
[2024-06-01 07:30] VITALS: BP 162/74
[2024-06-01] MEDS: NOVOLOG FLEXPEN-MODERATE RESISTANCE SC ×2 (07:30→12:58)
[2024-06-01] MEDS: NON-FORMULARY ITEM 30 MG PO (08:23)
[2024-06-01] MEDS: GLUCOPHAGE 500 MG PO ×2 (08:23→12:58)
[2024-06-01] MEDS: ZETIA 10 MG PO (08:23)
[2024-06-01] MEDS: VITAMIN C 500 MG PO (08:23)
[2024-06-01] MEDS: FOLVITE 1 MG PO (08:23)
[2024-06-01 10:51] LABS: Blood Urea Nitrogen 31 mg/dl (7-17); Calcium 9.5 mg/dl (8.4-10.2); Carbon Dioxide 26 mmol/L (22-30); Chloride 101 mmol/L (98-107); Estimated Creatinine Clearance 69 ml/min; Glucose 133 mg/dl (70-99); Potassium 4.2 mmol/L (3.5-5.1); Sodium 141 mmol/L (135-145); eGFR > 60.00
--- NOTE | 2024-06-01 10:51 | CM ---
CM following re: d/c planning.
Pt from home, resides with spouse in private residence.
Pt uses cane and walker as needed. She is able to manage ADLs, assists as needed.
Pt recently had surgery for repair of shoulder rotator cuff tear.
Pt is for d/c today.
Her will transport her home.
We discussed home PT / OT, she is agreeable to referral and would like [facility] as she has used them in the past.
Ref sent to [facility].
Goal: home with [facility] and family transport home.
--- NOTE | 2024-06-01 10:56 | W.PN.HOSP.TC ---
Today's Communication/Plan
-
dc home
transition to medrol dose jose enrique
outpt gi f/u
outpt pcp f/u
outpt rheum f/u
Assessment / Plan
Assessment / Plan
NAD, resting comfortably in bed
Scleral anicteric
Moist mucous membranes
No JVD
CTA bilateral
Normal S1-S2 no murmurs
Soft nontender nondistended bowel sounds active
No peripheral pitting edema
Moves extremities spontaneously
AAOx3
Psoriatic arthritis�acute flare
Currently steroids along with Otezla twice daily and methotrexate
Will need to follow-up with rheumatology as outpatient
Awaiting prior authorization for Tremfya
Likely able to transition to p.o. steroids with a 2-week tapering dose starting tomorrow
Pancreatic cyst
S/p EUS
Outpatient follow-up with Dr. Daley
Hypokalemia
Replete as needed
Anticipated Discharge: Today
Subjective/Interval History
-
Date of Service: June 01, 2024
seen and examined. feeling better. ambulating the halls with her walker
states that she wants to go home
has a follow up appointmet with advanced endoscopist tomorrow.
Objective Data
-
Labs:
Laboratory Results
06/01/24
10:02
Sodium 141
Potassium 4.2
Chloride 101
Carbon Dioxide 26
BUN 31 H
Creatinine 0.8
Glucose 133 H
Calcium 9.5 D
Vital Signs:
Vital Signs
Temp Pulse Resp BP Pulse Ox
98.2 F 78 16 162/74 96
06/01/24 07:30 06/01/24 07:30 06/01/24 07:30 06/01/24 07:30 06/01/24 08:20
I&O
05/31/24 06/01/24 06/02/24
06:59 06:59 06:59
Intake Total 1260 / 1260 600 / 600
Balance 1260 / 1260 600 / 600
--- NOTE | 2024-06-01 10:57 | W.DCSUMMARY ---
Discharge Summary
Discharge Data
Date of Admission: 05/30/24
Date of Discharge: 06/01/24
-
Pending Results: No
Hospital Course
Acute psoriatic arthritis flare. Started on IV steroids with improvement. Will transition home to a Medrol dose pack.
Low potassium repleted
Was seen by pt/ot rec home therapy.
[facility] need outpatient PCP and Rheumatology follow
Supposed to follow up with [facility] tomorrow.
Discharge Plan
-
Patient Disposition: Home (Routine Discharge)
Discharge Diagnosis/Procedures: Acute psoriatic arthritis flare
Diet: As tolerated
Activity: As tolerated
Blood Work: bmp in 5days
Referrals:
Kar Cohen Jr., [Family Provider] -
Chyna Cooper MD [Consulting Staff] -
Galindo Daley MD [Active] -
Additional Discharge Medication Instructions: Acute psoriatic arthritis flare. Started on IV steroids with improvement. Will transition home to a Medrol dose pack.
Low potassium repleted
Was seen by pt/ot rec home therapy.
[place] need outpatient PCP and Rheumatology follow
Supposed to follow up with [facility] tomorrow.
Prescriptions:
New
methylprednisolone [Methylpred DP] 4 mg tablets,dose pack
4 mg PO DAILY Qty: 21 0RF
Continued
travoprost 1 DROP drops
1 drp BOTH EYES HS
levothyroxine 100 MCG tablet
137 mcg PO DAILY
methotrexate sodium 2.5 MG tablet
2.5 mg PO TUTH
albuterol sulfate 1 PUFF HFA aerosol inhaler
2 puff inhalation R Q4HPRN PRN (Reason: sob)
Patient Comments:
as needed
melatonin 10 MG tablet
20 mg PO HS
amlodipine 5 MG tablet
2.5 mg PO HS
folic acid 1 MG tablet
1 mg PO DAILY
ondansetron 4 mg tablet,disintegrating
4 mg PO Q8HPRN PRN (Reason: nausea and vomiting) Qty: 10 0RF
furosemide 20 MG tablet
20 mg PO HS Qty: 0 0RF
metformin 500 mg Tablet
500 mg PO TID
meclizine 12.5 mg Tablet
12.5 mg PO TID PRN (Reason: vertigo)
Otezla 30 mg Tablet
30 mg PO BID
esomeprazole magnesium [Nexium] 40 mg capsule,delayed release(DR/EC)
40 mg PO DAILY
acetaminophen 650 mg Tablet Extended Release
1,300 mg PO Q8H
lorazepam 0.5 mg Tablet
0.5 mg PO BID PRN (Reason: anxiety)
loratadine [Claritin] 10 mg Tablet
10 mg PO PRN PRN (Reason: allergies)
cholecalciferol (vitamin D3) [Vitamin D3] 25 mcg (1,000 unit) Capsule
5,000 unit PO DAILY
bvsotlaotkdj-jscrwkdq-qogksc Tablet
1 tab PO DAILY
calcium-vitamin D3-vitamin K [Viactiv] 650 mg-12.5 mcg-40 mcg Tablet,Chewable
3 tab PO DAILY
PreserVision AREDS
1 cap PO BID
vitamin O53-hlyvl acid
1,000 mcg PO DAILY
ascorbic acid (vitamin C) [Vitamin C] 500 mg Tablet
500 mg PO DAILY
ferrous sulfate 325 mg (65 mg iron) Tablet
325 mg PO DAILY
zolpidem [Ambien] 5 mg Tablet
5 mg PO HS
ezetimibe [Zetia] 10 mg Tablet
10 mg PO DAILY
Rx Instructions:
Pt has not started this med yet.
Boswellia eboni-turmeric xt 500 mg Capsule
1 cap PO DAILY
[place] Xl
2 pill PO BID
Discharge Orders:
Discharge Patient (As Directed); Ordered 06/01/24
Ordered By: Getachew Turner
Discharge Date and Time
Print Language: [place]
[2024-06-01 11:20] VITALS: BP 164/85
[2024-06-01 11:40] LABS: Glucose - Point of Care 93 mg/dl (70-99)
== END 2024-06-01 14:16 | disposition home health service (06) | DRG 546 ==
LOC: 4 EAST ACU 12:57
PROVIDERS: Nurse Practitioner; ADMITTING PHYSICIAN Internal Medicine; ATTENDING PHYSICIAN Hospitalist; EMERGENCY PHYSICIAN Emergency Medicine; FAMILY PHYSICIAN Family Medicine
DX: L40.50 Arthropathic psoriasis, unspecified (principal); K86.1 Other chronic pancreatitis; K86.2 Cyst of pancreas; M48.00 Spinal stenosis, site unspecified; E89.0 Postprocedural hypothyroidism; F41.0 Panic disorder [episodic paroxysmal anxiety]; K21.9 Gastro-esophageal reflux disease without esophagitis; E86.0 Dehydration; M06.4 Inflammatory polyarthropathy; R26.9 Unspecified abnormalities of gait and mobility; E11.9 Type 2 diabetes mellitus without complications; F32.A Depression, unspecified; E04.2 Nontoxic multinodular goiter; I10 Essential (primary) hypertension; R74.8 Abnormal levels of other serum enzymes; R56.9 Unspecified convulsions; J45.909 Unspecified asthma, uncomplicated; E66.09 Other obesity due to excess calories; G43.909 Migraine, unspecified, not intractable, without status migrainosus; E87.6 Hypokalemia; G35 Multiple sclerosis; Z87.19 Personal history of other diseases of the digestive system; Z79.890 Hormone replacement therapy; Z79.631 Long term (current) use of antimetabolite agent; Z79.84 Long term (current) use of oral hypoglycemic drugs; Z87.11 Personal history of peptic ulcer disease; Z88.6 Allergy status to analgesic agent; Z88.1 Allergy status to other antibiotic agents; Z88.5 Allergy status to narcotic agent; Z88.2 Allergy status to sulfonamides; Z88.8 Allergy status to other drugs, medicaments and biological substances; Z68.32 Body mass index [BMI] 32.0-32.9, adult; Z11.52 Encounter for screening for COVID-19
CPT/HCPCS: 36415; 80048; 80053; 81003; 82962; 83036; 84443; 85025; 85027; 85652; 86140; 87502; 87811; 94640; 96361; 96372; 96374; 96375; 96376; 97162; 97166; 97535; 99284

== ENCOUNTER → 2024-06-05 11:35 | Outpatient (REF) | payer MEDICARE, OTHER, SELFPAY ==
[2024-06-05 15:01] LABS: % Basophils 0.1 % (0-2); % Eosinophils 0.2 % (0-6); % Immature Granulocytes 0.7 % (0-0.5); % Lymphocytes 14.1 % (20.5-51.1); % Monocytes 3.9 % (1.7-9.3); Absolute Immature Granulocytes 0.1 10^3/uL (0-0.05); Absolute Lymphocytes 1.9 10^3/uL (1.2-3.4); Absolute Monocytes 0.5 10^3/uL (0.1-0.6); Absolute Neutrophils 10.8 10^3/uL (1.4-6.5); Hematocrit 36.7 % (37.0-47.0); Mean Corp Hgb Conc. 32.7 g/dL (33.0-37.0); Mean Corpuscular Hgb 27.3 pg (27.0-31.0); Mean Corpuscular Volume 83.4 fL (81.0-99.0); Mean Platelet Volume 9.4 fL (7.4-10.4); Nucleated Red Blood Cells % 0 %; Platelet Count 538 10^3/uL (130-400); Red Cell Dist. Width 14.3 % (11.5-14.5); White Blood Cell Count 13.4 10^3/uL (4.8-10.8)
[2024-06-05 15:27] LABS: Blood Urea Nitrogen 40 mg/dl (7-17); Calcium 9.5 mg/dl (8.4-10.2); Carbon Dioxide 31 mmol/L (22-30); Chloride 90 mmol/L (98-107); Glucose 141 mg/dl (70-99); Potassium 4.2 mmol/L (3.5-5.1); Sodium 140 mmol/L (135-145); eGFR > 60.00
[2024-06-05 15:35] LABS: Erythrocyte Sed Rate 27 mm/hour (0-20)
== END ==
LOC: REG 11:35
PROVIDERS: ATTENDING PHYSICIAN Physician Assistant Surgical; FAMILY PHYSICIAN Family Medicine; OTHER PHYSICIAN Internal Medicine Cardiovascular Disease; OTHER PHYSICIAN Internal Medicine Endocrinology, Diabetes & Metabolism; OTHER PHYSICIAN Internal Medicine Gastroenterology; REFERRING PHYSICIAN Internal Medicine Rheumatology
DX: M25.511 Pain in right shoulder (principal); E87.6 Hypokalemia; I10 Essential (primary) hypertension; L40.59 Other psoriatic arthropathy; Z51.81 Encounter for therapeutic drug level monitoring; Z79.899 Other long term (current) drug therapy
CPT/HCPCS: 36415; 80048; 85025; 85652; 86140

== ENCOUNTER 2024-07-04 11:11 | Emergency (ER) | payer MEDICARE, OTHER, SELFPAY ==
[2024-07-04 11:49] VITALS: BP 196/95
--- NOTE | 2024-07-04 13:25 | ED.MUSCINJ ---
HPI-Injury
General
Chief Complaint: Fall
Source: patient
Exam Limitations: none
Time Seen by Provider: 07/04/24 12:57
History of Present Illness-Injury
Initial Injury comments:
68-year-old female not anticoagulated presents after trip and fall. 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 She had a forehead on the concrete. No loss of conscious. She denies neck pain. She does note a
headache. She was noted with abrasions and swelling to the forehead and nose. She also complains of left hand pain.
Past History
Past History
ED Past Medical History: Asthma, GERD, HTN, NIDDM, Seizures, Hypothyroidism, Psychiatric (Anxiety, Panic disorder) and Other (MS, recurrent pancreatitis, IPMN. Migraines, Demyelinating disease, Glaucoma, Ulcers)
ED Past Surgical History: Gynecological, Orthopedic (Cervical fusion, right total knee, ) and Other (Gastric sleeve, thyroidectomy)
Social History
Tobacco: Non-smoker
Alcohol: None
Drug: None
Personal:
Living: with family
Phy Exam
Physical Exam
Physical Exam:
General: Well appearing female NAD
HEENT: NC abrasions with laceration to forehead measuring 2cm. Nose and upper lip abrasions noted with upper lip swelling. Dentition appears well. TM's normal
Heart: RRR, no murmurs
Lungs; CTA bilaterally
MSK: c-spine nontender. Left hand/small finger tender with ecchymosis/swelling. No deformities.
Neuro: Alert and oriented no unilateral weakness.
Injury Course
Orders/Labs/Results
Orders:
Orders
07/04/24 11:54
CT Facial Bones W/o Iv Contras Urgent
Comment:
Reason For Exam: fall
CT Head W/o Iv Contrast Urgent
Comment:
Reason For Exam: fall
07/04/24 11:55
Hand, Left 3 View [CR Hand - Left Min 3 Views] Urgent
Comment:
Reason For Exam: fall
MDM/Problems Addressed
Differential Diagnosis Includes:
Mechanical fall with trauma to the forehead and face. CT of the head and facial bones ordered through triage which I reviewed and is negative for acute bony abnormalities or intracranial hemorrhage. Left hand pain after fall. Consider fracture
versus brain. I personally visualized x-rays of the left hand which demonstrate nondisplaced fracture of the base of the proximal phalanx of the small finger. Patient was splinted for this.
2 cm laceration to forehead. This was cleansed with saline anesthetized with 1% plain lidocaine and closed in a simple erupted fashion using 5-0 Prolene sutures. A total of 5 sutures were required to provide wound edge approximation and hemostasis.
*Critical Care Note
Total Time (30-74mins, 75-104mins- exclusive of procedures): Not Applicable
ED Attending Note
-
Portions of this chart may have been created with voice recognition software.� Occasional wrong word or��sound alike� substitutions may have occurred due to the inherent limitations of voice recognition software.
Discharge Plan
Departure
Patient Disposition: Home (Routine Discharge)
Date of Disposition: 07/04/24
Time of Disposition: 13:30
Patient with high blood pressure during this ER visit?: No
Discharge Problem:
Laceration
Instructions: Laceration Repair With Stitches (DC), Preventing falls in adults
Prescriptions:
No Action
travoprost 1 DROP drops
1 drp BOTH EYES HS
levothyroxine 100 MCG tablet
137 mcg PO DAILY
methotrexate sodium 2.5 MG tablet
2.5 mg PO TUTH
albuterol sulfate 1 PUFF HFA aerosol inhaler
2 puff inhalation R Q4HPRN PRN (Reason: sob)
Patient Comments:
as needed
melatonin 10 MG tablet
20 mg PO HS
amlodipine 5 MG tablet
2.5 mg PO HS
folic acid 1 MG tablet
1 mg PO DAILY
ondansetron 4 mg tablet,disintegrating
4 mg PO Q8HPRN PRN (Reason: nausea and vomiting) Qty: 10 0RF
furosemide 20 MG tablet
20 mg PO HS Qty: 0 0RF
metformin 500 mg Tablet
500 mg PO TID
meclizine 12.5 mg Tablet
12.5 mg PO TID PRN (Reason: vertigo)
Otezla 30 mg Tablet
30 mg PO BID
esomeprazole magnesium [Nexium] 40 mg capsule,delayed release(DR/EC)
40 mg PO DAILY
acetaminophen 650 mg Tablet Extended Release
1,300 mg PO Q8H
lorazepam 0.5 mg Tablet
0.5 mg PO BID PRN (Reason: anxiety)
loratadine [Claritin] 10 mg Tablet
10 mg PO PRN PRN (Reason: allergies)
cholecalciferol (vitamin D3) [Vitamin D3] 25 mcg (1,000 unit) Capsule
5,000 unit PO DAILY
vwrpjitpzhdj-zfaeqlxw-aqffdh Tablet
1 tab PO DAILY
calcium-vitamin D3-vitamin K [Viactiv] 650 mg-12.5 mcg-40 mcg Tablet,Chewable
3 tab PO DAILY
PreserVision AREDS
1 cap PO BID
vitamin S51-czpxj acid
1,000 mcg PO DAILY
ascorbic acid (vitamin C) [Vitamin C] 500 mg Tablet
500 mg PO DAILY
ferrous sulfate 325 mg (65 mg iron) Tablet
325 mg PO DAILY
zolpidem [Ambien] 5 mg Tablet
5 mg PO HS
ezetimibe [Zetia] 10 mg Tablet
10 mg PO DAILY
Rx Instructions:
Pt has not started this med yet.
Boswellia eboni-turmeric xt 500 mg Capsule
1 cap PO DAILY
[place] Xl
2 pill PO BID
methylprednisolone [Methylpred DP] 4 mg tablets,dose pack
4 mg PO DAILY Qty: 21 0RF
Referrals:
Kar Cohen Jr., DO [Family Provider] -
Activity Restrictions/Additional Instructions:
You may ice to the sore spots. You may take Tylenol or ibuprofen for pain. Apply antibacterial into the wounds daily. Have sutures removed in 5 to 7 days. Return if needed otherwise
Interventions
Interventions:
*Risk Screen - Suicide Last Done: 07/04/24 11:49
*General Assessment Last Done: 07/04/24 11:49
*Neglect/Abuse Screening Last Done: 07/04/24 11:49
ED- Neurological Assessment Last Done: 07/04/24 13:03
ED-Skin Assessment Last Done: 07/04/24 13:03
Discharge Date and Time
Print Language: [place]
== END 2024-07-04 14:14 | disposition home or self-care (01) ==
LOC: EMR 11:11
PROVIDERS: EMERGENCY PHYSICIAN Emergency Medicine; FAMILY PHYSICIAN Family Medicine
DX: S01.81XA Laceration without foreign body of other part of head, initial encounter (principal); S60.222A Contusion of left hand, initial encounter; W01.0XXA Fall on same level from slipping, tripping and stumbling without subsequent striking against object, initial encounter; I10 Essential (primary) hypertension; J45.909 Unspecified asthma, uncomplicated; E03.9 Hypothyroidism, unspecified; E11.9 Type 2 diabetes mellitus without complications
CPT/HCPCS: 12011; 99284; 70450; 70486; 73130

== ENCOUNTER 2024-07-25 21:31 | Emergency (ER) | payer MEDICARE, OTHER, SELFPAY ==
[2024-07-25 21:33] VITALS: BP 173/89
--- NOTE | 2024-07-25 23:13 | ED.GENMED ---
History of Present Illness
General
Chief Complaint: Fall
Source: patient and previous hospital records (Previous hospitalization May of this year for acute psoriatic arthritis flare. ED visit July 04 after trip and fall at the [email or web address] house.)
Exam Limitations: none
Time Seen by Provider: 07/25/24 22:49
Nursing documentation reviewed up to this point in time: agreed with
History of Present Illness
History of Present Illness:
This is a 68-year-old woman who resides at home with her . She has history of psoriatic arthritis, spinal stenosis, ambulatory dysfunction for which she utilizes a cane but also has a walker available to her.
She has been suffering with persistent left shoulder pain after undergoing left shoulder arthroscopy for rotator cuff repair April of this year. She was acutely hospitalized in May with acute psoriatic arthritis flare, treated with IV
steroids and transition to prednisone taper. She has been following with rheumatology, Dr. Cooper and was recently started on Tremfya. Patient admits to ongoing generalized joint pain and was last evaluated in this ED July 04 if she suffered a
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 She suffered a forehead laceration requiring suture repair. CT of the head and facial bones was negative. She suffered a fracture of the
base of her left small finger. After following up with orthopedics she was noted to have bilateral anterior knee pain and reports x-rays of her knees noted a 'hairline fracture' of her left patella as well as ligament strain of her right knee.
She has recently completed home physical therapy for her left shoulder and does admit that she was recommended to start outpatient physical therapy for balance and gait training. She has not initiated this as yet.
Tonight, while in the bathroom she dropped a tire on all tabs and while bending over to pick it up she lost her balance and fell onto her right side. She denies head injury nor loss of consciousness. She was unable to stand and thus called 911 for
stand assistance. Once she was able to stand, she has been ambulatory with her cane and arrives via private automobile with her .
She denies dizziness nor lightheadedness, no headache, no neck nor back pain. No chest pain or cough no shortness of breath, no abdominal pain, no nausea nor vomiting. She does note some right posterior hip pain, is noted to have a contusion with
hematoma right posterior calf and moderate increased pain of her left anterior knee.
Patient states this is her third fall in the past month.
Past History
Past History
ED Past Medical History: Asthma, GERD, HTN, NIDDM, Seizures, Hypothyroidism, Psychiatric (Anxiety, Panic disorder) and Other (MS, recurrent pancreatitis, IPMN. Migraines, Demyelinating disease, Glaucoma, Ulcers)
ED Past Surgical History: Gynecological, Orthopedic (Cervical fusion, right total knee, ) and Other (Gastric sleeve, thyroidectomy)
Social History
Tobacco: Non-smoker
Alcohol: None
Drug: None
Personal:
Living: with family
Phy Exam
Physical Exam
Physical Exam:
GENERAL: 68-year-old woman appears her stated age, bright and alert, easily conversant, appears in no acute distress. is accompanying.
EYE: pupils equal and reactive. anicteric the head is normocephalic, atraumatic.
NECK: Supple, nontender, no meningismus, no significant adenopathy.
ENT: oral mucosa is moist. No rhinorrhea. No facial tenderness.
CARDIAC: Regular rate and rhythm. no murmur.
LUNGS: Clear breath sounds bilaterally, no acute respiratory distress, no wheezes/rales/rhonchi. No palpable chest wall tenderness.
ABDOMEN: Soft, nondistended, without focal tenderness, no r/g, no cvat. normoactive BS.
BACK: No midline bony tenderness. Straight leg raising is negative bilaterally.
NEUROLOGICAL: Alert and oriented x3, no focal neuro deficits.
SKIN: Warm and dry, normal color, skin intact. No rash.
MUSCULOSKELETAL: No C/C/E. peripheral pulses are full and equal b/l. Mild to moderate tenderness right posterior hip. There is full hip range of motion with mildly increased pain with full flexion as well as internal rotation. There is subacute
focal 2 to 3 cm area of ecchymosis left anterior medial patella with moderate local tenderness to palpation. There is full knee range of motion with increased pain with flexion greater than 90 degrees. There is no joint effusion. Right knee with
evidence of prior total knee replacement. No joint effusion. No palpable tenderness, full range of motion without difficulty. There is a soft tissue contusion with focal hematoma 5 cm in diameter right posterior mid calf. Mild to moderate local
tenderness to palpation. Calf is otherwise supple. No tenderness to the ankle nor posterior knee. Full ankle range of motion without difficulty nor pain. Sensation and strength intact bilaterally.
PSYCH: Normal and appropriate interaction.
Course
Orders/Labs/Results
Orders:
Orders
07/25/24 23:12
Hip, Right 2-3 Views [CR Hip - RT w/wo Pel 2-3 Vw*] Urgent
Comment:
Reason For Exam: fall, right post hip pain
Include a pelvis x-ray?: Yes
Knee, Left 4 or More Views [CR Knee - Left 4 Or More View*] Urgent
Comment:
Reason For Exam: fall, anterior knee pain
Vital Signs
Initial and Last Documented VS:
Initial Vital Signs
Temp Pulse Resp BP Pulse Ox
97.7 F 97 18 173/89 99
07/25/24 21:33 07/25/24 21:33 07/25/24 21:33 07/25/24 21:33 07/25/24 21:33
Last Documented Vital Signs
Temp Pulse Resp BP Pulse Ox
97.7 F 80 16 143/58 96
07/25/24 21:33 07/26/24 01:00 07/26/24 01:00 07/26/24 01:00 07/26/24 01:00
MDM/Problems Addressed
Differential Diagnosis Includes:
Concern for occult right hip fracture, right pelvic fracture. Has known questionable/hairline fracture left patella, concern for progression of this fracture.
Patient has history of spinal stenosis, psoriatic arthritis with ongoing generalized joint pain and has suffered 3 falls over the past month.
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 No prodrome of dizziness nor lightheadedness. No syncopal event, no head injury.
She has known ambulatory dysfunction requiring cane versus walker.
Significant concern for exacerbation of ambulatory dysfunction as she has been recovering from previous falls.
Will check x-ray of right hip/pelvis x-ray and left knee.
No indication for CT of the head nor spinal x-rays.
No indication for laboratory studies. She has had no recent URI nor GI illnesses.
Chronic conditions affecting care:
Spinal stenosis, psoriatic arthritis, osteoarthritis, chronic ambulatory dysfunction.
*Radiology
Radiology exam reviewed: preliminary read by ED provider (Right hip shows no evidence of fracture. Left knee shows calcific tendinopathy of the patellar tendon but no definitive evidence of fracture.)
*Pulse Oximetry
Patient hypoxic: no
*Critical Care Note
Total Time (30-74mins, 75-104mins- exclusive of procedures): Not Applicable
Update Note
Update Note:
X-rays are unremarkable. No evidence of acute fracture.
Patient has successfully ambulated to and from the bathroom utilizing her cane and without assistance.
Due to recent falls recommend she use her walker at least over the next week or 2 for improvement in balance and safety.
I have written a prescription for physical therapy evaluation for gait training/balance evaluation and training.
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
ED Attending Note
-
Portions of this chart may have been created with voice recognition software.� Occasional wrong word or��sound alike� substitutions may have occurred due to the inherent limitations of voice recognition software.
Discharge Plan
Departure
Patient Disposition: Home (Routine Discharge)
Date of Disposition: 07/26/24
Time of Disposition: 00:55
Patient with high blood pressure during this ER visit?: No
Condition: Good
Discharge Problem:
Contusion of hip, right, right calf hematoma, Contusion of left knee, Ambulatory dysfunction
Instructions: Contusion (DC), Preventing falls in adults
Prescriptions:
No Action
travoprost 1 DROP drops
1 drp BOTH EYES HS
levothyroxine 100 MCG tablet
137 mcg PO DAILY
methotrexate sodium 2.5 MG tablet
2.5 mg PO TUTH
albuterol sulfate 1 PUFF HFA aerosol inhaler
2 puff inhalation R Q4HPRN PRN (Reason: sob)
Patient Comments:
as needed
melatonin 10 MG tablet
20 mg PO HS
amlodipine 5 MG tablet
2.5 mg PO HS
folic acid 1 MG tablet
1 mg PO DAILY
ondansetron 4 mg tablet,disintegrating
4 mg PO Q8HPRN PRN (Reason: nausea and vomiting) Qty: 10 0RF
furosemide 20 MG tablet
20 mg PO HS Qty: 0 0RF
metformin 500 mg Tablet
500 mg PO TID
meclizine 12.5 mg Tablet
12.5 mg PO TID PRN (Reason: vertigo)
Otezla 30 mg Tablet
30 mg PO BID
esomeprazole magnesium [Nexium] 40 mg capsule,delayed release(DR/EC)
40 mg PO DAILY
acetaminophen 650 mg Tablet Extended Release
1,300 mg PO Q8H
lorazepam 0.5 mg Tablet
0.5 mg PO BID PRN (Reason: anxiety)
loratadine [Claritin] 10 mg Tablet
10 mg PO PRN PRN (Reason: allergies)
cholecalciferol (vitamin D3) [Vitamin D3] 25 mcg (1,000 unit) Capsule
5,000 unit PO DAILY
hrqcvfxxmios-homjxsrq-daeool Tablet
1 tab PO DAILY
calcium-vitamin D3-vitamin K [Viactiv] 650 mg-12.5 mcg-40 mcg Tablet,Chewable
3 tab PO DAILY
PreserVision AREDS
1 cap PO BID
vitamin R70-cpjry acid
1,000 mcg PO DAILY
ascorbic acid (vitamin C) [Vitamin C] 500 mg Tablet
500 mg PO DAILY
ferrous sulfate 325 mg (65 mg iron) Tablet
325 mg PO DAILY
zolpidem [Ambien] 5 mg Tablet
5 mg PO HS
ezetimibe [Zetia] 10 mg Tablet
10 mg PO DAILY
Rx Instructions:
Pt has not started this med yet.
Boswellia eboni-turmeric xt 500 mg Capsule
1 cap PO DAILY
[place] Xl
2 pill PO BID
methylprednisolone [Methylpred DP] 4 mg tablets,dose pack
4 mg PO DAILY Qty: 21 0RF
Referrals:
Kar Cohen Jr., DO [Active] - Call in 1-3 days for appt
UNKNOWN - PT DOES,NOT KNOW [Family Provider] -
Interventions
Interventions:
*Risk Screen - Suicide Last Done: 07/25/24 21:37
*General Assessment Last Done: 07/25/24 21:37
*Neglect/Abuse Screening Last Done: 07/25/24 21:37
ED- Fall Risk Assessment Last Done: 07/25/24 23:14
*ED COVID-19 Vaccine History Last Done: 07/25/24 23:14
ED-Musculoskeletal Assessment Last Done: 07/25/24 23:14
ED- Neurological Assessment Last Done: 07/25/24 23:14
ED-Skin Assessment Last Done: 07/25/24 23:14
Discharge Date and Time
Print Language: [email or web address]
[2024-07-26 01:00] VITALS: BP 143/58
== END 2024-07-26 01:00 | disposition home or self-care (01) ==
LOC: EMR 21:31
PROVIDERS: EMERGENCY PHYSICIAN Emergency Medicine
DX: S80.11XA Contusion of right lower leg, initial encounter (principal); S80.02XA Contusion of left knee, initial encounter; S70.01XA Contusion of right hip, initial encounter; S01.81XA Laceration without foreign body of other part of head, initial encounter; R26.2 Difficulty in walking, not elsewhere classified; W01.0XXA Fall on same level from slipping, tripping and stumbling without subsequent striking against object, initial encounter; L40.50 Arthropathic psoriasis, unspecified; M48.00 Spinal stenosis, site unspecified; J45.909 Unspecified asthma, uncomplicated; K21.9 Gastro-esophageal reflux disease without esophagitis; I10 Essential (primary) hypertension; E11.9 Type 2 diabetes mellitus without complications; G40.909 Epilepsy, unspecified, not intractable, without status epilepticus; E03.9 Hypothyroidism, unspecified; F41.9 Anxiety disorder, unspecified; H40.9 Unspecified glaucoma
CPT/HCPCS: 99283; 73502; 73564

== ENCOUNTER → 2024-08-02 08:49 | Outpatient (REF) | payer MEDICARE, OTHER, SELFPAY ==
[2024-08-02 10:05] LABS: % Basophils 0.4 % (0-2); % Eosinophils 0.4 % (0-6); % Immature Granulocytes 0.4 % (0-0.5); % Lymphocytes 21.5 % (20.5-51.1); % Monocytes 4.8 % (1.7-9.3); % Neutrophils 72.5 % (42.2-75.2); Absolute Lymphocytes 2.1 10^3/uL (1.2-3.4); Absolute Monocytes 0.5 10^3/uL (0.1-0.6); Hemoglobin 10.7 g/dL (12.0-16.0); Mean Corp Hgb Conc. 32.4 g/dL (33.0-37.0); Mean Corpuscular Hgb 27.7 pg (27.0-31.0); Mean Corpuscular Volume 85.5 fL (81.0-99.0); Mean Platelet Volume 8.4 fL (7.4-10.4); Nucleated Red Blood Cells % 0 %; Platelet Count 467 10^3/uL (130-400); Red Blood Cell Count 3.86 10^6/uL (4.20-5.40); Red Cell Dist. Width 16.5 % (11.5-14.5); White Blood Cell Count 9.6 10^3/uL (4.8-10.8)
[2024-08-02 11:00] LABS: Erythrocyte Sed Rate 50 mm/hour (0-20)
[2024-08-02 11:23] LABS: ALT (SGPT) 20 U/L (0-35); AST (SGOT) 25 U/L (14-36); Albumin 4.1 g/dl (3.5-5.0); Alkaline Phosphatase 80 U/L (38-126); Blood Urea Nitrogen 32 mg/dl (7-17); Calcium 9.5 mg/dl (8.4-10.2); Carbon Dioxide 29 mmol/L (22-30); Chloride 97 mmol/L (98-107); Glucose 83 mg/dl (70-99); HDL Cholesterol 90 mg/dl; Iron 51 ug/dl (37-170); LDL Cholesterol, Calculated 68 mg/dl; Potassium 4.5 mmol/L (3.5-5.1); Sodium 140 mmol/L (135-145); Total Bilirubin 0.3 mg/dl (0.2-1.3); Total Cholesterol 192 mg/dl (50-199); Total Protein 6.8 g/dl (6.3-8.2); Triglyceride 174 mg/dl (10-149); Very Low Density Lipoprotein 34 mg/dl (0-30); eGFR > 60.00
[2024-08-02 11:31] LABS: Percent Saturation 15 % (20-50); Total Iron Binding Capacity 332 ug/dl (265-497)
[2024-08-02 11:51] LABS: Vitamin D, 25-OH*** 86.7 ng/mL (30-80)
[2024-08-02 11:58] LABS: TSH Reflex To Free T4 0.54 uIU/ml (0.47-4.68)
[2024-08-02 12:02] LABS: Ferritin 30.8 ng/ml (11.1-264.0)
[2024-08-03 10:21] LABS: Glycohemoglobin (HgbA1c) 6.3 % (4.0-5.6)
[2024-08-04 00:03] LABS: CCP Antibody IgG/IgA 2 Units (0-19)
[2024-08-04 17:46] LABS: Rheumatoid Agglutinin Less Than 10 IU (<10 IU)
== END ==
LOC: REG 08:49
PROVIDERS: ATTENDING PHYSICIAN Internal Medicine Rheumatology; FAMILY PHYSICIAN Family Medicine
DX: E03.9 Hypothyroidism, unspecified (principal); E61.1 Iron deficiency; R73.02 Impaired glucose tolerance (oral); E55.9 Vitamin D deficiency, unspecified; Z13.6 Encounter for screening for cardiovascular disorders; M17.12 Unilateral primary osteoarthritis, left knee; Z11.1 Encounter for screening for respiratory tuberculosis; Z79.899 Other long term (current) drug therapy
CPT/HCPCS: 36415; 80053; 80061; 82306; 82728; 83036; 83540; 83550; 84443; 85025; 85652; 86140; 86200; 86430

== ENCOUNTER → 2024-08-11 11:32 | Outpatient (REF) | payer MEDICARE, OTHER, SELFPAY | LOC: RAD 11:32 | PROVIDERS: ATTENDING PHYSICIAN Family Medicine; REFERRING PHYSICIAN Internal Medicine Rheumatology | DX: M79.671 Pain in right foot (principal) | CPT/HCPCS: 73630 ==

== ENCOUNTER → 2024-08-30 07:49 | Outpatient (REF) | payer MEDICARE, OTHER, SELFPAY ==
[2024-08-30 08:30] LABS: % Basophils 0.6 % (0-2); % Eosinophils 1.6 % (0-6); % Immature Granulocytes 0.3 % (0-0.5); % Monocytes 5.9 % (1.7-9.3); % Neutrophils 61.6 % (42.2-75.2); Absolute Basophils 0.1 10^3/uL (0-0.2); Absolute Eosinophils 0.2 10^3/uL (0-0.7); Absolute Lymphocytes 2.8 10^3/uL (1.2-3.4); Absolute Monocytes 0.6 10^3/uL (0.1-0.6); Absolute Neutrophils 5.7 10^3/uL (1.4-6.5); Hematocrit 35.2 % (37.0-47.0); Hemoglobin 11.2 g/dL (12.0-16.0); Mean Corp Hgb Conc. 31.8 g/dL (33.0-37.0); Mean Corpuscular Hgb 27.5 pg (27.0-31.0); Mean Corpuscular Volume 86.5 fL (81.0-99.0); Mean Platelet Volume 8.3 fL (7.4-10.4); Nucleated Red Blood Cells % 0 %; Platelet Count 422 10^3/uL (130-400); Red Blood Cell Count 4.07 10^6/uL (4.20-5.40); Red Cell Dist. Width 16.3 % (11.5-14.5); White Blood Cell Count 9.3 10^3/uL (4.8-10.8)
[2024-08-30 08:55] LABS: ALT (SGPT) 18 U/L (0-35); AST (SGOT) 25 U/L (14-36); Albumin 4.1 g/dl (3.5-5.0); Alkaline Phosphatase 72 U/L (38-126); Blood Urea Nitrogen 26 mg/dl (7-17); Calcium 9.3 mg/dl (8.4-10.2); Carbon Dioxide 28 mmol/L (22-30); Chloride 100 mmol/L (98-107); Glucose 80 mg/dl (70-99); Potassium 3.7 mmol/L (3.5-5.1); Sodium 140 mmol/L (135-145); Total Bilirubin 0.3 mg/dl (0.2-1.3); Total Protein 6.9 g/dl (6.3-8.2); eGFR > 60.00
[2024-08-30 09:23] LABS: Erythrocyte Sed Rate 40 mm/hour (0-20)
== END ==
LOC: REG 07:49
PROVIDERS: ATTENDING PHYSICIAN Internal Medicine Rheumatology; FAMILY PHYSICIAN Family Medicine
DX: E03.9 Hypothyroidism, unspecified (principal); L40.59 Other psoriatic arthropathy; M17.12 Unilateral primary osteoarthritis, left knee; Z11.1 Encounter for screening for respiratory tuberculosis; Z68.33 Body mass index [BMI] 33.0-33.9, adult; Z79.899 Other long term (current) drug therapy
CPT/HCPCS: 36415; 80053; 85025; 85652; 86140

== ENCOUNTER → 2024-10-04 07:41 | Outpatient (REF) | payer MEDICARE, OTHER, SELFPAY ==
[2024-10-04 08:58] LABS: Blood Urea Nitrogen 43 mg/dl (7-17); Calcium 9.1 mg/dl (8.4-10.2); Carbon Dioxide 28 mmol/L (22-30); Chloride 100 mmol/L (98-107); Glucose 79 mg/dl (70-99); Potassium 4.2 mmol/L (3.5-5.1); Sodium 137 mmol/L (135-145); eGFR > 60.00
[2024-10-04 09:15] LABS: Free T4 1.76 ng/dl (0.78-2.19)
[2024-10-04 09:29] LABS: TSH 0.79 uIU/ml (0.47-4.68)
[2024-10-04 13:08] LABS: Glycohemoglobin (HgbA1c) 5.6 % (4.0-5.6)
== END ==
LOC: REG 07:41
PROVIDERS: ATTENDING PHYSICIAN Internal Medicine Endocrinology, Diabetes & Metabolism; FAMILY PHYSICIAN Family Medicine; OTHER PHYSICIAN Internal Medicine Rheumatology
DX: E03.8 Other specified hypothyroidism (principal); R73.03 Prediabetes
CPT/HCPCS: 36415; 80048; 83036; 84439; 84443

== ENCOUNTER → 2024-11-03 09:54 | Outpatient (REF) | payer MEDICARE, OTHER, SELFPAY ==
[2024-11-03 11:03] LABS: % Basophils 0.5 % (0-2); % Eosinophils 1.1 % (0-6); % Immature Granulocytes 0.3 % (0-0.5); % Lymphocytes 23.1 % (20.5-51.1); % Monocytes 7.3 % (1.7-9.3); % Neutrophils 67.7 % (42.2-75.2); Absolute Eosinophils 0.1 10^3/uL (0-0.7); Absolute Lymphocytes 1.7 10^3/uL (1.2-3.4); Absolute Monocytes 0.5 10^3/uL (0.1-0.6); Absolute Neutrophils 4.9 10^3/uL (1.4-6.5); Hematocrit 35.5 % (37.0-47.0); Hemoglobin 11.6 g/dL (12.0-16.0); Mean Corp Hgb Conc. 32.7 g/dL (33.0-37.0); Mean Corpuscular Hgb 28.7 pg (27.0-31.0); Mean Corpuscular Volume 87.9 fL (81.0-99.0); Mean Platelet Volume 8.8 fL (7.4-10.4); Nucleated Red Blood Cells % 0 %; Platelet Count 378 10^3/uL (130-400); Red Blood Cell Count 4.04 10^6/uL (4.20-5.40); Red Cell Dist. Width 14.3 % (11.5-14.5); White Blood Cell Count 7.3 10^3/uL (4.8-10.8)
[2024-11-03 11:24] LABS: Erythrocyte Sed Rate 15 mm/hour (0-20)
[2024-11-03 11:34] LABS: ALT (SGPT) 20 U/L (0-35); AST (SGOT) 25 U/L (14-36); Albumin 4.1 g/dl (3.5-5.0); Alkaline Phosphatase 105 U/L (38-126); Blood Urea Nitrogen 40 mg/dl (7-17); Calcium 9.4 mg/dl (8.4-10.2); Carbon Dioxide 27 mmol/L (22-30); Chloride 101 mmol/L (98-107); Glucose 83 mg/dl (70-99); HDL Cholesterol 87 mg/dl; LDL Cholesterol, Calculated 90 mg/dl; Potassium 4.2 mmol/L (3.5-5.1); Sodium 136 mmol/L (135-145); Total Bilirubin 0.5 mg/dl (0.2-1.3); Total Cholesterol 207 mg/dl (50-199); Total Protein 6.8 g/dl (6.3-8.2); Triglyceride 150 mg/dl (10-149); Very Low Density Lipoprotein 30 mg/dl (0-30); eGFR > 60.00
[2024-11-03 12:15] LABS: Ferritin 9.8 ng/ml (11.1-264.0)
[2024-11-03 12:25] LABS: Glycohemoglobin (HgbA1c) 5.8 % (4.0-5.6)
== END ==
LOC: REG 09:54
PROVIDERS: ATTENDING PHYSICIAN Physician Assistant; FAMILY PHYSICIAN Family Medicine; REFERRING PHYSICIAN Internal Medicine Cardiovascular Disease
DX: E78.2 Mixed hyperlipidemia (principal); R06.02 Shortness of breath; R55 Syncope and collapse; R42 Dizziness and giddiness; F32.9 Major depressive disorder, single episode, unspecified; I45.0 Right fascicular block; R53.83 Other fatigue; E11.9 Type 2 diabetes mellitus without complications; I10 Essential (primary) hypertension; L40.50 Arthropathic psoriasis, unspecified; M17.12 Unilateral primary osteoarthritis, left knee; M35.3 Polymyalgia rheumatica; M79.10 Myalgia, unspecified site; M79.7 Fibromyalgia; Z79.899 Other long term (current) drug therapy; R73.02 Impaired glucose tolerance (oral); E61.1 Iron deficiency
CPT/HCPCS: 36415; 80053; 80061; 82728; 83036; 85025; 85652; 86140

== ENCOUNTER → 2025-01-07 08:47 | Outpatient (REF) | payer MEDICARE, OTHER, SELFPAY ==
[2025-01-07 10:03] LABS: % Basophils 0.7 % (0-2); % Eosinophils 4.8 % (0-6); % Immature Granulocytes 0.3 % (0-0.5); % Lymphocytes 28.2 % (20.5-51.1); % Monocytes 7.5 % (1.7-9.3); % Neutrophils 58.5 % (42.2-75.2); Absolute Basophils 0.1 10^3/uL (0-0.2); Absolute Eosinophils 0.3 10^3/uL (0-0.7); Absolute Lymphocytes 1.9 10^3/uL (1.2-3.4); Absolute Monocytes 0.5 10^3/uL (0.1-0.6); Hematocrit 35.7 % (37.0-47.0); Hemoglobin 11.7 g/dL (12.0-16.0); Mean Corp Hgb Conc. 32.8 g/dL (33.0-37.0); Mean Corpuscular Volume 88.4 fL (81.0-99.0); Mean Platelet Volume 8.8 fL (7.4-10.4); Nucleated Red Blood Cells % 0 %; Platelet Count 342 10^3/uL (130-400); Red Blood Cell Count 4.04 10^6/uL (4.20-5.40); Red Cell Dist. Width 14.2 % (11.5-14.5); White Blood Cell Count 6.8 10^3/uL (4.8-10.8)
[2025-01-07 11:07] LABS: ALT (SGPT) 19 U/L (0-35); AST (SGOT) 28 U/L (14-36); Alkaline Phosphatase 87 U/L (38-126); Blood Urea Nitrogen 30 mg/dl (7-17); Calcium 9.2 mg/dl (8.4-10.2); Carbon Dioxide 28 mmol/L (22-30); Chloride 101 mmol/L (98-107); Glucose 81 mg/dl (70-99); Lipase 152 U/L (23-300); Sodium 140 mmol/L (135-145); Total Bilirubin 0.5 mg/dl (0.2-1.3); Total Protein 6.6 g/dl (6.3-8.2); eGFR > 60.00
[2025-01-07 11:16] LABS: Total Iron Binding Capacity 375 ug/dl (265-497)
== END ==
LOC: REG 08:47
PROVIDERS: ATTENDING PHYSICIAN Internal Medicine Gastroenterology; FAMILY PHYSICIAN Family Medicine; OTHER PHYSICIAN Internal Medicine Rheumatology
DX: D13.6 Benign neoplasm of pancreas (principal); R74.8 Abnormal levels of other serum enzymes; E61.1 Iron deficiency
CPT/HCPCS: 36415; 80053; 83550; 83690; 85025

== ENCOUNTER → 2025-01-13 08:55 | Outpatient (REF) | payer MEDICARE, OTHER, SELFPAY ==
[2025-01-13 10:06] LABS: % Basophils 0.9 % (0-2); % Eosinophils 4.6 % (0-6); % Immature Granulocytes 0.3 % (0-0.5); % Lymphocytes 24.7 % (20.5-51.1); % Monocytes 8.3 % (1.7-9.3); % Neutrophils 61.2 % (42.2-75.2); Absolute Basophils 0.1 10^3/uL (0-0.2); Absolute Eosinophils 0.3 10^3/uL (0-0.7); Absolute Lymphocytes 1.7 10^3/uL (1.2-3.4); Absolute Monocytes 0.6 10^3/uL (0.1-0.6); Absolute Neutrophils 4.1 10^3/uL (1.4-6.5); Hematocrit 34.5 % (37.0-47.0); Hemoglobin 11.5 g/dL (12.0-16.0); Mean Corp Hgb Conc. 33.3 g/dL (33.0-37.0); Mean Corpuscular Hgb 29.3 pg (27.0-31.0); Mean Platelet Volume 9.2 fL (7.4-10.4); Nucleated Red Blood Cells % 0 %; Platelet Count 368 10^3/uL (130-400); Red Blood Cell Count 3.92 10^6/uL (4.20-5.40); White Blood Cell Count 6.7 10^3/uL (4.8-10.8)
[2025-01-13 10:28] LABS: NT-proBNP 686 pg/ml
[2025-01-13 10:39] LABS: ALT (SGPT) 18 U/L (0-35); AST (SGOT) 27 U/L (14-36); Alkaline Phosphatase 87 U/L (38-126); Blood Urea Nitrogen 35 mg/dl (7-17); Calcium 9.5 mg/dl (8.4-10.2); Carbon Dioxide 30 mmol/L (22-30); Chloride 100 mmol/L (98-107); Glucose 81 mg/dl (70-99); Potassium 3.9 mmol/L (3.5-5.1); Sodium 139 mmol/L (135-145); Total Bilirubin 0.6 mg/dl (0.2-1.3); Total Protein 6.6 g/dl (6.3-8.2); eGFR > 60.00
== END ==
LOC: REG 08:55
PROVIDERS: ATTENDING PHYSICIAN Nurse Practitioner Adult Health; FAMILY PHYSICIAN Family Medicine; OTHER PHYSICIAN Internal Medicine Cardiovascular Disease; OTHER PHYSICIAN Internal Medicine Rheumatology
DX: R60.0 Localized edema (principal); I10 Essential (primary) hypertension
CPT/HCPCS: 36415; 80053; 83880; 85025

== ENCOUNTER → 2025-02-03 09:29 | Outpatient (REF) | payer MEDICARE, OTHER, SELFPAY ==
[2025-02-03 10:57] LABS: HDL Cholesterol 86 mg/dl; LDL Cholesterol, Calculated 77 mg/dl; Total Cholesterol 183 mg/dl (50-199); Triglyceride 103 mg/dl (10-149); Very Low Density Lipoprotein 20 mg/dl (0-30)
== END ==
LOC: REG 09:29
PROVIDERS: ATTENDING PHYSICIAN Internal Medicine Cardiovascular Disease; FAMILY PHYSICIAN Family Medicine; OTHER PHYSICIAN Internal Medicine Gastroenterology
DX: E11.9 Type 2 diabetes mellitus without complications (principal); E78.2 Mixed hyperlipidemia; R06.02 Shortness of breath; R55 Syncope and collapse; R42 Dizziness and giddiness; F32.9 Major depressive disorder, single episode, unspecified; I45.0 Right fascicular block; R53.83 Other fatigue; L40.50 Arthropathic psoriasis, unspecified
CPT/HCPCS: 36415; 80061

== ENCOUNTER → 2025-02-11 16:15 | Outpatient (REF) | payer MEDICARE, OTHER, SELFPAY | LOC: RAD 16:15 | PROVIDERS: ATTENDING PHYSICIAN Family Medicine | DX: Z12.31 Encounter for screening mammogram for malignant neoplasm of breast (principal); M85.89 Other specified disorders of bone density and structure, multiple sites; Z13.820 Encounter for screening for osteoporosis; Z78.0 Asymptomatic menopausal state | CPT/HCPCS: 77063; 77067; 77080 ==

== ENCOUNTER → 2025-03-19 12:17 | Outpatient (REF) | payer MEDICARE, OTHER, SELFPAY ==
[2025-03-19 13:32] LABS: Hematocrit 34.3 % (37.0-47.0); Hemoglobin 11.2 g/dL (12.0-16.0); Mean Corp Hgb Conc. 32.7 g/dL (33.0-37.0); Mean Corpuscular Volume 85.5 fL (81.0-99.0); Nucleated Red Blood Cells % 0 %; Platelet Count 390 10^3/uL (130-400); Red Cell Dist. Width 14.5 % (11.5-14.5)
[2025-03-19 14:48] LABS: ALT (SGPT) 21 U/L (0-35); AST (SGOT) 28 U/L (14-36); Albumin 4.4 g/dl (3.5-5.0); Alkaline Phosphatase 92 U/L (38-126); Blood Urea Nitrogen 33 mg/dl (7-17); Calcium 9.3 mg/dl (8.4-10.2); Carbon Dioxide 24 mmol/L (22-30); Chloride 103 mmol/L (98-107); Glucose 83 mg/dl (70-99); Lipase 204 U/L (23-300); Potassium 4.6 mmol/L (3.5-5.1); Sodium 136 mmol/L (135-145); Total Protein 7.2 g/dl (6.3-8.2); eGFR > 60.00
== END ==
LOC: RAD 12:17
PROVIDERS: ATTENDING PHYSICIAN Family Medicine; REFERRING PHYSICIAN Internal Medicine Gastroenterology
DX: R10.84 Generalized abdominal pain (principal)
CPT/HCPCS: 36415; 74176; 80053; 83690; 85025

== ENCOUNTER → 2025-04-08 09:54 | Outpatient (REF) | payer MEDICARE, OTHER, SELFPAY ==
[2025-04-08 11:05] LABS: Glycohemoglobin (HgbA1c) 5.8 % (4.0-5.6)
[2025-04-08 11:32] LABS: Blood Urea Nitrogen 35 mg/dl (7-17); Calcium 9.4 mg/dl (8.4-10.2); Carbon Dioxide 28 mmol/L (22-30); Chloride 102 mmol/L (98-107); Glucose 87 mg/dl (70-99); Potassium 4.6 mmol/L (3.5-5.1); Sodium 135 mmol/L (135-145); eGFR > 60.00
[2025-04-08 12:03] LABS: TSH 0.09 uIU/ml (0.47-4.68)
== END ==
LOC: REG 09:54
PROVIDERS: ATTENDING PHYSICIAN Internal Medicine Endocrinology, Diabetes & Metabolism; FAMILY PHYSICIAN Family Medicine; OTHER PHYSICIAN Internal Medicine Rheumatology
DX: E03.8 Other specified hypothyroidism (principal); R73.03 Prediabetes
CPT/HCPCS: 36415; 80048; 83036; 84439; 84443

== ENCOUNTER → 2025-05-06 11:38 | Outpatient (REF) | payer MEDICARE, OTHER, SELFPAY ==
[2025-05-06 13:58] LABS: TSH 0.24 uIU/ml (0.47-4.68)
== END ==
LOC: REG 11:38
PROVIDERS: ATTENDING PHYSICIAN Internal Medicine Endocrinology, Diabetes & Metabolism; FAMILY PHYSICIAN Family Medicine; OTHER PHYSICIAN Internal Medicine Rheumatology
DX: R73.03 Prediabetes (principal); E03.8 Other specified hypothyroidism
CPT/HCPCS: 36415; 84439; 84443

== ENCOUNTER → 2025-05-28 10:21 | Outpatient (REF) | payer MEDICARE, OTHER, SELFPAY | LOC: HWRAD 10:21 | PROVIDERS: ATTENDING PHYSICIAN Family Medicine | DX: N83.202 Unspecified ovarian cyst, left side (principal) | CPT/HCPCS: 76830; 76856 ==

== ENCOUNTER → 2025-06-09 16:02 | Outpatient (REF) | payer MEDICARE, OTHER, SELFPAY | LOC: RAD 16:02 | PROVIDERS: ATTENDING PHYSICIAN Nurse Practitioner Adult Health; FAMILY PHYSICIAN Family Medicine; OTHER PHYSICIAN Internal Medicine Cardiovascular Disease; REFERRING PHYSICIAN Internal Medicine Rheumatology | DX: R60.0 Localized edema (principal); M25.571 Pain in right ankle and joints of right foot | CPT/HCPCS: 73610; 73630 ==

== ENCOUNTER → 2025-07-01 08:21 | Outpatient (REF) | payer MEDICARE, OTHER, SELFPAY ==
[2025-07-01 09:05] LABS: Hematocrit 37.1 % (37.0-47.0); Hemoglobin 12.0 g/dL (12.0-16.0); Mean Corp Hgb Conc. 32.3 g/dL (33.0-37.0); Mean Corpuscular Volume 86.7 fL (81.0-99.0); Nucleated Red Blood Cells % 0 %; Platelet Count 380 10^3/uL (130-400); Red Cell Dist. Width 14.6 % (11.5-14.5)
[2025-07-01 09:12] LABS: Urine Character Clear (Clear)
[2025-07-01 09:36] LABS: C-Reactive Protein 22.30 mg/L (0.0-10.00); Urine Red Blood Cell 0-2 /HPF (0-2); Urine White Cell 0-2 /HPF (0-5)
[2025-07-01 09:48] LABS: ALT (SGPT) 41 U/L (0-35); AST (SGOT) 48 U/L (14-36); Albumin 4.5 g/dl (3.5-5.0); Alkaline Phosphatase 77 U/L (38-126); Blood Urea Nitrogen 31 mg/dl (7-17); Calcium 9.2 mg/dl (8.4-10.2); Carbon Dioxide 33 mmol/L (22-30); Chloride 97 mmol/L (98-107); Glucose 99 mg/dl (70-99); Potassium 4.2 mmol/L (3.5-5.1); Sodium 137 mmol/L (135-145); Total Protein 7.3 g/dl (6.3-8.2); eGFR 49.00
== END ==
LOC: REG 08:21
PROVIDERS: ATTENDING PHYSICIAN Internal Medicine Rheumatology; FAMILY PHYSICIAN Family Medicine
DX: E03.9 Hypothyroidism, unspecified (principal); E61.1 Iron deficiency; L40.59 Other psoriatic arthropathy; M17.12 Unilateral primary osteoarthritis, left knee; M35.3 Polymyalgia rheumatica; Z68.33 Body mass index [BMI] 33.0-33.9, adult; Z79.899 Other long term (current) drug therapy
CPT/HCPCS: 36415; 80053; 81003; 81015; 82248; 85025; 85652; 86140

== ENCOUNTER → 2025-07-16 09:08 | Outpatient (REF) | payer MEDICARE, OTHER, SELFPAY | LOC: MRI 3T 09:08 | PROVIDERS: ATTENDING PHYSICIAN Physician Assistant Surgical; FAMILY PHYSICIAN Family Medicine | DX: M25.511 Pain in right shoulder (principal); M75.41 Impingement syndrome of right shoulder | CPT/HCPCS: 73221 ==

== ENCOUNTER → 2025-07-27 11:45 | Outpatient (REF) | payer MEDICARE, OTHER, SELFPAY ==
[2025-07-27 13:01] LABS: Hematocrit 34.5 % (37.0-47.0); Hemoglobin 11.1 g/dL (12.0-16.0); Mean Corp Hgb Conc. 32.2 g/dL (33.0-37.0); Mean Corpuscular Volume 89.4 fL (81.0-99.0); Nucleated Red Blood Cells % 0 %; Platelet Count 375 10^3/uL (130-400); Red Cell Dist. Width 14.8 % (11.5-14.5)
[2025-07-27 13:34] LABS: ALT (SGPT) 18 U/L (0-35); AST (SGOT) 27 U/L (14-36); Albumin 4.1 g/dl (3.5-5.0); Alkaline Phosphatase 77 U/L (38-126); Blood Urea Nitrogen 29 mg/dl (7-17); Calcium 9.4 mg/dl (8.4-10.2); Carbon Dioxide 29 mmol/L (22-30); Chloride 103 mmol/L (98-107); Glucose 83 mg/dl (70-99); Potassium 4.4 mmol/L (3.5-5.1); Sodium 139 mmol/L (135-145); Total Protein 6.9 g/dl (6.3-8.2); eGFR > 60.00
== END ==
LOC: RAD 11:45
PROVIDERS: ATTENDING PHYSICIAN Nurse Practitioner Adult Health; FAMILY PHYSICIAN Family Medicine; OTHER PHYSICIAN Internal Medicine Cardiovascular Disease; REFERRING PHYSICIAN Internal Medicine Rheumatology
DX: R60.0 Localized edema (principal); R42 Dizziness and giddiness; E61.1 Iron deficiency; R73.02 Impaired glucose tolerance (oral)
CPT/HCPCS: 36415; 80053; 85025; 93970

== ENCOUNTER → 2025-08-06 09:19 | Outpatient (REF) | payer MEDICARE, OTHER, SELFPAY ==
[2025-08-06 10:25] LABS: Hematocrit 31.8 % (37.0-47.0); Hemoglobin 10.7 g/dL (12.0-16.0); Mean Corp Hgb Conc. 33.6 g/dL (33.0-37.0); Mean Corpuscular Volume 85.9 fL (81.0-99.0); Nucleated Red Blood Cells % 0 %; Platelet Count 344 10^3/uL (130-400); Red Cell Dist. Width 14.4 % (11.5-14.5)
[2025-08-06 11:02] LABS: Glycohemoglobin (HgbA1c) 5.9 % (4.0-5.9)
[2025-08-06 12:59] LABS: Vitamin D, 25-OH*** 88.7 ng/mL (30-80)
[2025-08-06 13:19] LABS: ALT (SGPT) 17 U/L (0-35); AST (SGOT) 27 U/L (14-36); Albumin 4.1 g/dl (3.5-5.0); Alkaline Phosphatase 80 U/L (38-126); Blood Urea Nitrogen 31 mg/dl (7-17); Calcium 9.1 mg/dl (8.4-10.2); Carbon Dioxide 29 mmol/L (22-30); Chloride 102 mmol/L (98-107); Glucose 83 mg/dl (70-99); HDL Cholesterol 74 mg/dl; LDL Cholesterol, Calculated 108 mg/dl; Potassium 4.0 mmol/L (3.5-5.1); Sodium 137 mmol/L (135-145); Total Protein 6.8 g/dl (6.3-8.2); Very Low Density Lipoprotein 26 mg/dl (0-30); eGFR > 60.00
== END ==
LOC: REG 09:19
PROVIDERS: ATTENDING PHYSICIAN Family Medicine
DX: E61.1 Iron deficiency (principal); R73.02 Impaired glucose tolerance (oral); E89.0 Postprocedural hypothyroidism; E55.9 Vitamin D deficiency, unspecified; Z13.6 Encounter for screening for cardiovascular disorders; L40.50 Arthropathic psoriasis, unspecified; E04.2 Nontoxic multinodular goiter
CPT/HCPCS: 36415; 80053; 80061; 82306; 83036; 84443; 85025

== ENCOUNTER → 2025-08-29 09:16 | Outpatient (REF) | payer MEDICARE, OTHER, SELFPAY ==
[2025-08-29 10:33] LABS: Urine Character Clear (Clear)
[2025-08-29 10:43] LABS: Urine Red Blood Cell 0-2 /HPF (0-2)
[2025-08-29 11:06] LABS: C-Reactive Protein 5.00 mg/L (0.0-10.00)
== END ==
LOC: REG 09:16
PROVIDERS: ATTENDING PHYSICIAN Internal Medicine Rheumatology; FAMILY PHYSICIAN Family Medicine
DX: E03.9 Hypothyroidism, unspecified (principal); L40.59 Other psoriatic arthropathy; M17.12 Unilateral primary osteoarthritis, left knee; M35.3 Polymyalgia rheumatica; Z11.1 Encounter for screening for respiratory tuberculosis; Z68.33 Body mass index [BMI] 33.0-33.9, adult; Z79.899 Other long term (current) drug therapy
CPT/HCPCS: 36415; 81003; 81015; 82570; 84156; 85652; 86140; 86480